=== PATIENT | female | born 1960 | race Caucasian/White ===

== ENCOUNTER 2018-08-06 08:40 | Day surgery (SDC) | payer OTHER ==
[2018-08-06] MEDS ORDERED: Zoledronic Acid/Mannitol/Water 5 MG/100 ML INFUS.BOT IV ONE (09:00)
--- OUTSIDE RECORDS SUMMARY | 2018-08-06 09:41 | XMS REPORT | Summary of Care ---
:1960 Author Name DANK HARRIS M.D. Address [place] Physicians Unavailable , Care Team Providers Name Role Phone DANK HARRIS M.D. Unavailable Unavailable MARY LUEVANO [place], DAPHNE Gaviria Unavailable Unavailable Unavailable Unavailable Unavailable Functional Status Name Dates Details Functional status health issues are not documented Status: Name Dates Details Cognitive status health issues are not documented Status: Problems Name Dates Details Facial rash (782.1, R21) Status: Active Dyspnea on exertion (786.09, R06.09) Status: Active Bacterial overgrowth syndrome (569.89, K63.89) Status: Active Generalized weakness (780.79, R53.1) Status: Active Chronic reflux esophagitis (530.11, K21.0) Status: Active Encounter for long-term (current) use of high-risk medication (V58.69, Z79.899 ) Status: Active Essential (primary) hypertension (401.9, I10) Status: Active Interstitial lung disease (515, J84.9) Status: Active Osteopenia (733.90, M85.80) Status: Active Pulmonary fibrosis (515, J84.10) Status: Active Raynaud's disease (443.0, I73.00) Status: Active Scleroderma (710.1, M34.9) Status: Active Sjogrens syndrome (710.2, M35.00) Status: Active Vitamin D insufficiency (268.9, E55.9) Status: Active Medications Name Dates Details Mycophenolate Mofetil 500 MG Oral Tablet TAKE THREE (3) TABLET(S) BY MOUTH TWICE A DAY. Quantity: 180 Refills: 5 M.Bettie.DANK Start : 03-Oct-2017 Active Lisinopril 20 MG Oral Tablet TAKE 1 TABLET DAILY. Quantity: 90 Refills: 3 M.D.DANK Start : 29-Jan-2017 Active Reclast SOLN INFUSE GM every 6 months Refills: 0 Active Allergies and Adverse Reactions Name Dates Details No Known Allergies (Allergy) Status: Active Procedures Procedure Dates Details Procedures not documented Immunization Name Dates Details Immunizations not documented Family History Name Dates Details Family history of scleroderma (V19.8, Z82.69) Status: Active Social History Name Dates Details - Status: Name Dates Details Former smoker Vital Signs Date Test Result Details No Known Vitals to report Results Date Description Value Details [id number] [[facility]] CMP W/EGFR GLUCOSE 76 mg/dl (Normal) Range: 65-99 Comments: Fasting reference interval UREA NITROGEN (BUN) 16 mg/dl (Normal) Range: 7-25 CREATININE 0.62 mg/dl (Normal) Range: 0.50-1.05 Comments: For patients >49 years of age, the reference limitfor Creatinine is approximately 13% higher for peopleidentified as -[place]. eGFR NON- 101 {ML/MIN/1.7} (Normal) Range: > OR=60 eGFR 117 {ML/MIN/1.7} (Normal) Range: > OR=60 BUN/CREATININE RATIO NOT APPLICABLE {CALC} Range: 6-22 SODIUM 139 mmol/L (Normal) Range: 135-146 POTASSIUM 4.2 mmol/L (Normal) Range: 3.5-5.3 CHLORIDE 103 mmol/L (Normal) Range: 98-110 CARBON DIOXIDE 28 mmol/L (Normal) Range: 20-31 CALCIUM 9.7 mg/dl (Normal) Range: 8.6-10.4 PROTEIN, TOTAL 7.6 g/dl (Normal) Range: 6.1-8.1 ALBUMIN 4.4 g/dl (Normal) Range: 3.6-5.1 GLOBULIN 3.2 {G/DL__CALC} (Normal) Range: 1.9-3.7 ALBUMIN/GLOBULIN RATIO 1.4 {CALC} (Normal) Range: 1.0-2.5 BILIRUBIN, TOTAL 0.4 mg/dl (Normal) Range: 0.2-1.2 ALKALINE PHOSPHATE 55 u/l (Normal) Range: 33-130 AST 18 u/l (Normal) Range: 10-35 ALT 12 u/l (Normal) Range: 6-29 [id number] [[facility]] CBC (INCLUDES DIFF/PLT) Comments: REPORT COMMENT: FASTING:NOAN UPDATE OR CORRECTION HAS BEEN MADE TO NAME WHITE BLOOD CELL COUNT 6.0 {Thousand/u} (Normal) Range: 3.8-10.8 RED BLOOD CELL COUNT 4.36 {Million/uL} (Normal) Range: 3.80-5.10 HEMOGLOBIN 12.6 g/dl (Normal) Range: 11.7-15.5 HEMATOCRIT 38.6 % (Normal) Range: 35.0-45.0 MCV 88.5 fL (Normal) Range: 80.0-100.0 MCH 28.9 pg (Normal) Range: 27.0-33.0 MCHC 32.6 g/dl (Normal) Range: 32.0-36.0 RDW 12.5 % (Normal) Range: 11.0-15.0 PLATELET COUNT 268 {Thousand/u} (Normal) Range: 140-400 MPV 9.9 fL (Normal) Range: 7.5-12.5 ABSOLUTE NEUTROPHILS 4092 {cells/uL} (Normal) Range: 8251-8280 ABSOLUTE LYMPHOCYTES 1296 {cells/uL} (Normal) Range: 850-3900 ABSOLUTE MONOCYTES 552 {cells/uL} (Normal) Range: 200-950 ABSOLUTE EOSINOPHILS 30 {cells/uL} (Normal) Range: 15-500 ABSOLUTE BASOPHILS 30 {cells/uL} (Normal) Range: 0-200 NEUTROPHILS 68.2 % (Normal) LYMPHOCYTES 21.6 % (Normal) MONOCYTES 9.2 % (Normal) EOSINOPHILS 0.5 % (Normal) BASOPHILS 0.5 % (Normal) Plan of Care Name Dates Details Planned Observations Planned Goals not documented Planned Encounters Appointment; DANK HARRIS M.D. On: 04-Mar-2018 10:00 Interventions Provided Discussion/SummaryDear Ms. King: The labs are normal including blood counts, liver and kidney tests. Sincerely, Dr. Harris Instructions Name Dates Details Instructions not documented Encounters Appointment; DANK HARRIS M.D. On: 17-Jul-2016 10:30 Encounter Diagnosis: Problem not documented Appointment; DANK HARRIS M.D. On: 29-Jan-2017 10:30 Encounter Diagnosis: Problem not documented Appointment; IWONA KAPOOR On: 13-Aug-2017 9:30 Encounter Diagnosis: Problem not documented Appointment; DANK HARRIS M.D. On: 13-Aug-2017 10:30 Encounter Diagnosis: Problem not documented
== END 2018-08-06 10:06 | disposition home or self-care (01) ==
LOC: DS 08:40
PROVIDERS: ATTEND Clinical Nurse Specialist Women's Health
DX: M81.0 Age-related osteoporosis without current pathological fracture (principal)
CPT/HCPCS: 96365; J3489

== ENCOUNTER 2019-08-28 11:01 | Emergency (ER) | payer OTHER ==
[2019-08-28] MEDS ORDERED: NA CHLORIDE 0.9% 1,000 ML ONE (12:02)
--- NOTE | 2019-08-28 12:14 | RAD REPORT ---
EXAM DESCRIPTION: RAD - Chest Single View - 08/28/2019 12:06 pm CLINICAL HISTORY: Fever COMPARISON: August 23 TECHNIQUE: AP portable chest image was obtained 1202 hours . FINDINGS: Lung volume is slightly decreased compared to the prior study. Patient has prominent inter stitial opacification as a baseline. The infiltrate changes seen in the right lung base August 23 hav e nearly fully resolved. Minimal stranding in the left lung base is similar to decreased as well. No new or progressive lung parenchymal process. Trachea is midline. Heart and vasculature are normal. No measurable pleural effusion and no pneumotho rax. No acute bony abnormality seen. No acute aortic findings suspected. IMPRESSION: Near complete resolution of right lung base infiltrate since August 23. No new or progressive lung parenchymal process since prior imaging.
[2019-08-28 12:50] LABS: Absolute Lymphocytes (CBC) 1.1 K/uL (0.7-4.9); Basophils % 0.5 % (0-1.3); Hematocrit 35.1 % (36.0-45.0); Lymphocytes % 13.5 % (15.3-44.8); MPV 8.1 fL (7.6-11.3); RBC Red Blood Cell Count 3.94 M/uL (3.86-4.86)
[2019-08-28 12:51] LABS: Protime INR 1.06
[2019-08-28 12:56] LABS: ALT/SGPT 15 U/L (12-78); AST/SGOT 11 U/L (15-37); Albumin 3.5 g/dL (3.4-5.0); Alkaline Phosphatase 62 U/L (45-117); BUN Blood Urea Nitrogen 20 mg/dL (7-18); Bicarbonate 28 mmol/L (21-32); Bilirubin Direct 0.1 mg/dL (0-0.2); Bilirubin Total 0.4 mg/dL (0.2-1.0); Creatine Phosphokinase 26 U/L (26-192); Glucose Level 87 mg/dL (74-106); Lipase 118 U/L (73-393); Potassium 3.9 mmol/L (3.5-5.1); Protein, Total 8.2 g/dL (6.4-8.2); Sodium Level 139 mmol/L (136-145); Troponin (Emerg Dept Use Only) < 0.02 ng/mL (0.0-0.045)
--- NOTE | 2019-08-28 13:06 | RAD REPORT ---
EXAM DESCRIPTION: CT - Head Brain Wo Cont - 08/28/2019 12:58 pm CLINICAL HISTORY: Headache COMPARISON: None. TECHNIQUE: Computed axial tomography of the head was obtained. IV contrast was not requested. All CT scans are performed using dose optimization technique as appropriate and may include automated exposure control or mA/KV adjustment according to patient size. FINDINGS: An intracranial bleed is not seen . The ventricles are normal in caliber. No extra-axial fluid collection is noted. Fluid within the sinuses/ mastoids is not seen. IMPRESSION: No acute intracranial abnormality is seen. If patient's symptoms persist MRI of the bra in would be recommended.
[2019-08-28 13:28] LABS: Urine Blood NEGATIVE (NEG); Urine Glucose NEGATIVE (NEG); Urine Protein NEGATIVE (NEG)
[2019-08-28 13:35] LABS: Urine Bacteria <20 /HPF (<20); Urine Culture Reflex Order NOT NEEDED; Urine RBC <5 /HPF (NONE SEEN)
[2019-08-28] MEDS ORDERED: MORPHINE 2 MG/ML SYR ONE (14:09)
[2019-08-28] MEDS ORDERED: ONDANSETRON 4 MG/2 ML VIAL ONE (14:09)
[2019-08-28] MEDS ORDERED: LIDOCAINE 1% MPF 5 ML VIAL ONE (14:15)
--- NOTE | 2019-08-28 15:31 | ER ---
Nurse's Notes [facility] Name: Jami Carlisle Age: 59 yrs Sex: Female : 1960 Arrival Date: 08/28/2019 Time: 11:04 Bed 6 Private MD: Brennan Zabala C Diagnosis: Fever, unspecified;Meningitis, unspecified Presentation: 08/28 11:09 Presenting complaint: Headache, nausea, and dizziness x 2 days. On Bactrim DS day 2 fot hb UTI, completed Zithromax yesterday for pneumonia. Transition of care: patient was not received from another setting of care. Risk Assessment: Do you want to hurt yourself or someone else?. 11:09 Method Of Arrival: Wheelchair hb 11:09 Acuity: SHAE 3 hb 11:14 Onset of symptoms was August 27, 2019. Care prior to arrival: None. hb 17:00 Initial Sepsis Screen: Does the patient meet any 2 criteria? No. Patient's initial bp sepsis screen is negative. Does the patient have a suspected source of infection? No. Patient's initial sepsis screen is negative. Triage Assessment: 11:29 Headache History: The patient has had previous headaches and this one is similar to bp previous episodes. General: Appears in no apparent distress. uncomfortable, Behavior is cooperative, appropriate for age, anxious. Pain: Complains of pain in head Pain currently is 8 out of 10 on a pain scale. Pain began 2-3 days ago. Also complains of nausea. EENT: No deficits noted. Neuro: No deficits noted. Cardiovascular: No deficits noted. Respiratory: No deficits noted. GI: No signs and/or symptoms were reported involving the gastrointestinal system. : No signs and/or symptoms were reported regarding the genitourinary system. Derm: No deficits noted. Musculoskeletal: No deficits noted. Historical: - Allergies: 11:12 No Known Allergies; hb - Home Meds: 11:12 mycophenolate mofetil 500 mg oral tab 2 tabs 2 times per day [Active]; lisinopril 20 mg hb Oral tab 2 tabs once daily [Active]; acyclovir 800 mg Oral tab twice a day [Active]; - PMHx: 11:12 Sceroderma; Hypertension; Interstitial lung disease; hb - Immunization history:: Adult Immunizations up to date. - Social history:: Smoking status: Patient/guardian denies using tobacco. - Ebola Screening: : No symptoms or risks identified at this time. Screenin:30 Abuse screen: Denies threats or abuse. Denies injuries from another. Nutritional bp screening: No deficits noted. Tuberculosis screening: No symptoms or risk factors identified. Fall Risk None identified. Assessment: 11:30 General: SEE TRIAGE NOTE. bp 13:36 Reassessment: patient signed the informed consent for lumbar puncture. mg2 14:30 Reassessment: PROVIDER AT B/S FOR LP. bp 15:30 Reassessment: ADMIT IN PROCESS. Neuro: Level of Consciousness is awake, alert, obeys bp commands, Oriented to person, place, time, situation, Appropriate for age. 16:30 Reassessment: ADMIT IN PROCESS. bp 17:30 Reassessment: ADMIT ON HOLD FOR POSSIBLE TRANSFER. bp 19:25 General: Appears in no apparent distress. comfortable, Behavior is calm, cooperative, mg2 appropriate for age. Pain: Complains of pain in head Pain does not radiate. Pain currently is 3 out of 10 on a pain scale. Quality of pain is described as aching, Pain began gradually, Is intermittent. Neuro: Level of Consciousness is awake, alert, obeys commands, Oriented to person, place, time, situation, Appropriate for age Reports dizziness, headache. Cardiovascular: Capillary refill < 3 seconds Patient's skin is warm and dry. Respiratory: Airway is patent Respiratory effort is even, unlabored, Respiratory pattern is regular, symmetrical. GI: Reports nausea. : Reports she had a previous UTI treatment. EENT: No signs and/or symptoms were reported regarding the EENT system. Derm: Skin is intact, Skin temperature is warm. Musculoskeletal: Circulation, motion, and sensation intact. Capillary refill < 3 seconds. 19:30 Reassessment: awaiting for [facility] Jeremiah to call back for the room assignment. mg2 20:15 Reassessment: Patient appears in no apparent distress at this time. report called to [address] jeremiah KEN RN and accepted the case. 20:40 Reassessment: Patient appears in no apparent distress at this time. Patient is alert, rr5 oriented x 3, equal unlabored respirations, skin warm/dry/pink. endorsed to [facility] vitally stable no complaints made. breathing spontaneously at room air. with IV cannula t right FA intact. Vital Signs: 11:13 BP 142 / 92; Pulse 79; Resp 16; Temp 99.2; Pulse Ox 99% on R/A; Weight 52.16 kg; Height hb 5 ft. 3 in. (160.02 cm); Pain 6/10; 13:46 BP 150 / 99; Pulse 80; Resp 18; Pulse Ox 100% on R/A; Pain 6/10; mg2 14:55 BP 149 / 92; Pulse 71; Resp 16; Pulse Ox 99% on R/A; mh5 16:29 BP 150 / 82; Pulse 64; Resp 14; Temp 98.4(TE); Pulse Ox 98% on R/A; mh5 17:31 BP 162 / 88; Pulse 66; Resp 16; Pulse Ox 100% ; bp 17:38 BP 162 / 88; Pulse 72; Resp 16; Temp 98.2(TE); Pulse Ox 96% on R/A; mh5 19:25 BP 137 / 91; Pulse 80; Resp 17; Temp 97.9; Pulse Ox 99% ; Pain 3/10; mg2 20:30 BP 156 / 93; Pulse 85; Resp 18; Pulse Ox 99% ; rr5 11:13 Body Mass Index 20.37 (52.16 kg, 160.02 cm) hb ED Course: 11:04 Patient arrived in ED. mr 11:04 Brennan Zabala MD is Private Physician. mr 11:11 Triage completed. hb 11:13 Arm band placed on. hb 11:17 Felix Churchill, RN is Primary Nurse. mg2 11:29 Julian Jarquin, RN is Primary Nurse. bp 11:30 Patient has correct armband on for positive identification. Bed in low position. Call bp light in reach. Side rails up X2. 11:41 Glen Azul MD is Attending Physician. gs 12:06 Chest Single View XRAY In Process Unspecified. EDMS 12:17 EKG done, by site technician. reviewed by Glen Azul MD. at1 12:20 Inserted saline lock: 20 gauge in right forearm, using aseptic technique. Blood bp collected. 12:58 Head Brain Wo Cont CT In Process Unspecified. EDMS 14:50 Assist provider with lumbar puncture: Set up LP tray. 5 15:28 Brennan Zabala MD is Hospitalizing Provider. gs 16:32 Csf Culture: hsv, viral culture Sent. [facility] 16:32 Csf Culture Sent. 5 17:00 Patient admitted, IV remains in place. bp 17:20 initiated a transfer with Yloie at the [facility] transfer center. eb 17:35 connected the neurologist administrative personal assistant for [facility] with Dr. Azul for patient eb transfer consultation. 17:47 connected the hospitalist administrative personal assistant for [facility] with Dr. Azul for patient eb transfer consultation. Administered Medications: 12:20 Drug: NS 0.9% 1000 ml Route: IV; Rate: 1 bolus; Site: right forearm; bp 13:00 Follow up: IV Status: Completed infusion; IV Intake: 1000ml bp 14:16 Drug: morphine 2 mg Route: IVP; Site: right wrist; mg2 16:34 Follow up: Response: Pain is decreased bp 14:16 Drug: Zofran 4 mg Route: IVP; Site: right wrist; mg2 16:33 Follow up: Response: Nausea is decreased bp 16:06 Drug: vancoMYCIN 1 grams Route: IVPB; Infused Over: 2 hrs; Site: right wrist; mg2 16:34 Follow up: IV Status: Infusion continued upon admission bp 16:07 Drug: Rocephin - (cefTRIAXone) 2 grams Route: IVPB; Infused Over: 30 mins; Site: right mg2 wrist; 16:33 Follow up: IV Status: Completed infusion; IV Intake: 50ml bp 18:22 Drug: Acyclovir 10 mg/kg Route: IVPB; Site: right forearm; bp 19:41 Follow up: Response: No adverse reaction; IV Status: Completed infusion; IV Intake: rr5 100ml 18:22 Drug: Ketorolac 15 mg Route: IVP; Site: right forearm; bp 19:41 Follow up: Response: No adverse reaction rr5 Intake: 13:00 IV: 1000ml; Total: 1000ml. bp 16:33 IV: 50ml; Total: 1050ml. bp 19:41 IV: 100ml; Total: 1150ml. rr5 Outcome: 15:29 Decision to Hospitalize by Provider. 17:00 Admitted to Med/surg accompanied by tech, family with patient, via wheelchair, room bp 417, with chart, Report called to CRISTIANA AGUILAR 17:00 Condition: stable 17:00 Instructed on the need for admit. 17:54 ER care complete, transfer ordered by MD. cohen 20:42 Patient left the ED. rr5 Signatures: Dispatcher [employer] Sofiya Atkins, Anita, cashier payments received EKG Tat1 Imani Vasquez, LAUREN RN Brigth Mirna 5 Glen Azul MD MD gs Peltier, Brian, RN RN Meron Kohli Michele, RN RN [facility] Darren Garrido RN RN rr5 Corrections: (The following items were deleted from the chart) 11:15 11:09 Presenting complaint: Headache and dizziness x 2 days, on Bactrim DS day 2 fot hb UTI, completed Zithromax yesterday for pneumonia. hb
--- NOTE | 2019-08-28 15:31 | EDPHYS ---
Physician Documentation [facility] Name: Jami Carlisle Age: 59 yrs Sex: Female : 1960 Arrival Date: 08/28/2019 Time: 11:04 Bed 6 Private MD: Brennan Zabala C ED Physician Glen Azul HPI: 08/28 15:24 This 59 yrs old Female presents to ER via Wheelchair with complaints of Fever.gs 15:24 Onset: The symptoms/episode began/occurred yesterday. Modifying factors: there are no gs obvious modifying factors. Associated signs and symptoms: Pertinent positives: headache, myalgias, dizziness. Severity of symptoms: At their worst the symptoms were severe in the emergency department the symptoms are unchanged. The patient has not experienced similar symptoms in the past. The patient has been recently seen by a physician: the patient's primary care provider. Historical: - Allergies: 11:12 No Known Allergies; hb - Home Meds: 11:12 mycophenolate mofetil 500 mg oral tab 2 tabs 2 times per day [Active]; lisinopril 20 mg hb Oral tab 2 tabs once daily [Active]; acyclovir 800 mg Oral tab twice a day [Active]; - PMHx: 11:12 Sceroderma; Hypertension; Interstitial lung disease; hb - Immunization history:: Adult Immunizations up to date. - Social history:: Smoking status: Patient/guardian denies using tobacco. - Ebola Screening: : No symptoms or risks identified at this time. ROS: 15:24 All other systems are negative. gs Exam: 15:24 Head/Face: Normocephalic, atraumatic. Eyes: Pupils equal round and reactive to light, gs extra-ocular motions intact. Lids and lashes normal. Conjunctiva and sclera are non-icteric and not injected. Cornea within normal limits. Periorbital areas with no swelling, redness, or edema. ENT: Nares patent. No nasal discharge, no septal abnormalities noted. Tympanic membranes are normal and external auditory canals are clear. Oropharynx with no redness, swelling, or masses, exudates, or evidence of obstruction, uvula midline. Mucous membranes moist. Chest/axilla: Normal chest wall appearance and motion. Nontender with no deformity. No lesions are appreciated. Cardiovascular: Regular rate and rhythm with a normal S1 and S2. No gallops, murmurs, or rubs. Normal PMI, no JVD. No pulse deficits. Respiratory: Lungs have equal breath sounds bilaterally, clear to auscultation and percussion. No rales, rhonchi or wheezes noted. No increased work of breathing, no retractions or nasal flaring. Abdomen/GI: Soft, non-tender, with normal bowel sounds. No distension or tympany. No guarding or rebound. No evidence of tenderness throughout. Back: No spinal tenderness. No costovertebral tenderness. Full range of motion. Skin: Warm, dry with normal turgor. Normal color with no rashes, no lesions, and no evidence of cellulitis. MS/ Extremity: Pulses equal, no cyanosis. Neurovascular intact. Full, normal range of motion. Neuro: Awake and alert, GCS 15, oriented to person, place, time, and situation. Cranial nerves II-XII grossly intact. Motor strength 5/5 in all extremities. Sensory grossly intact. Cerebellar exam normal. Normal gait. 15:24 Constitutional: The patient appears alert, awake, uncomfortable. 15:24 Neck: ROM/movement: Meningeal signs: are present. Vital Signs: 11:13 BP 142 / 92; Pulse 79; Resp 16; Temp 99.2; Pulse Ox 99% on R/A; Weight 52.16 kg; Height hb 5 ft. 3 in. (160.02 cm); Pain 6/10; 13:46 BP 150 / 99; Pulse 80; Resp 18; Pulse Ox 100% on R/A; Pain 6/10; mg2 14:55 BP 149 / 92; Pulse 71; Resp 16; Pulse Ox 99% on R/A; mh5 16:29 BP 150 / 82; Pulse 64; Resp 14; Temp 98.4(TE); Pulse Ox 98% on R/A; mh5 17:31 BP 162 / 88; Pulse 66; Resp 16; Pulse Ox 100% ; bp 17:38 BP 162 / 88; Pulse 72; Resp 16; Temp 98.2(TE); Pulse Ox 96% on R/A; mh5 19:25 BP 137 / 91; Pulse 80; Resp 17; Temp 97.9; Pulse Ox 99% ; Pain 3/10; mg2 20:30 BP 156 / 93; Pulse 85; Resp 18; Pulse Ox 99% ; rr5 11:13 Body Mass Index 20.37 (52.16 kg, 160.02 cm) hb Procedures: 15:06 Lumbar Puncture: Patient placed in left lateral decubitus position. clear fluid. jmm Puncture site dressed with 4x4s, Patient tolerated well. MDM: 12:13 Patient medically screened. 15:24 Differential diagnosis: viral Infection, bacterial infection, URI, bronchitis, gs pneumonia meningitis. Data reviewed: vital signs, nurses notes, lab test result(s), EKG, radiologic studies. Response to treatment: the patient's symptoms have markedly improved after treatment, and as a result, I will admit patient. 08/28 11:53 Order name: Basic Metabolic Panel; Complete Time: 13:13 08/28 11:53 Order name: Blood Culture Adult (2) 08/28 11:53 Order name: CBC with Diff; Complete Time: 13:13 08/28 11:53 Order name: CPK; Complete Time: 13:13 08/28 11:53 Order name: Lactate; Complete Time: 13:13 08/28 11:53 Order name: LFT's; Complete Time: 13:13 08/28 11:53 Order name: Lipase; Complete Time: 13:13 08/28 11:53 Order name: Procalcitonin; Complete Time: 14:03 08/28 11:53 Order name: Protime (+inr); Complete Time: 13:13 08/28 11:53 Order name: Troponin (emerg Dept Use Only); Complete Time: 13:13 08/28 11:53 Order name: Urine Microscopic Only; Complete Time: 14:03 08/28 13:20 Order name: Urine Dipstick--Ancillary (enter results); Complete Time: 14:03 08/28 13:20 Order name: Urine --Ancillary (enter results); Complete Time: 14:03 eb 08/28 13:28 Order name: Csf Culture 08/28 11:53 Order name: Chest Single View XRAY; Complete Time: 13:13 08/28 12:14 Order name: Head Brain Wo Cont CT; Complete Time: 13:13 08/28 13:28 Order name: Fluid Cell Count,Body; Complete Time: 17:27 08/28 13:28 Order name: Spinal Fluid Profile; Complete Time: 17:27 08/28 13:28 Order name: Csf Culture: hsv, viral culture 08/28 14:20 Order name: EKG Electrocardiogram; Complete Time: 18:02 [facility] 08/28 15:45 Order name: CONS Pharmacy Consult [facility] 08/28 15:45 Order name: Regular [facility] 08/28 18:03 Order name: EKG Electrocardiogram [facility] 08/28 11:53 Order name: Accucheck; Complete Time: 11:59 08/28 11:53 Order name: Cardiac monitoring; Complete Time: 11:59 08/28 11:53 Order name: EKG - Nurse/Tech; Complete Time: 11:59 08/28 11:53 Order name: IV Saline Lock - Large Bore; Complete Time: 12:30 08/28 11:53 Order name: Labs collected and sent; Complete Time: 12:30 08/28 11:53 Order name: O2 Per Protocol; Complete Time: 11:58 08/28 11:53 Order name: O2 Sat Monitoring; Complete Time: 11:58 08/28 11:53 Order name: Urine Dipstick-Ancillary (obtain specimen); Complete Time: 13:24 08/28 12:55 Order name: LP Consents; Complete Time: 13:36 08/28 12:55 Order name: LP Setup; Complete Time: 13:35 gs Administered Medications: 12:20 Drug: NS 0.9% 1000 ml Route: IV; Rate: 1 bolus; Site: right forearm; bp 13:00 Follow up: IV Status: Completed infusion; IV Intake: 1000ml bp 14:16 Drug: morphine 2 mg Route: IVP; Site: right wrist; mg2 16:34 Follow up: Response: Pain is decreased bp 14:16 Drug: Zofran 4 mg Route: IVP; Site: right wrist; mg2 16:33 Follow up: Response: Nausea is decreased bp 16:06 Drug: vancoMYCIN 1 grams Route: IVPB; Infused Over: 2 hrs; Site: right wrist; mg2 16:34 Follow up: IV Status: Infusion continued upon admission bp 16:07 Drug: Rocephin - (cefTRIAXone) 2 grams Route: IVPB; Infused Over: 30 mins; Site: right mg2 wrist; 16:33 Follow up: IV Status: Completed infusion; IV Intake: 50ml bp 18:22 Drug: Acyclovir 10 mg/kg Route: IVPB; Site: right forearm; bp 19:41 Follow up: Response: No adverse reaction; IV Status: Completed infusion; IV Intake: rr5 100ml 18:22 Drug: Ketorolac 15 mg Route: IVP; Site: right forearm; bp 19:41 Follow up: Response: No adverse reaction rr5 Disposition: 08/28/19 17:[address] [facility]. Diagnosis are Fever, unspecified, Meningitis, unspecified. - Reason for transfer: Higher level of care. - Accepting physician is tbd. - Condition is Stable. - Problem is new. - Symptoms have improved. Critical care time excluding procedures: 15:24 Critical care time: Bedside Care: 10 minutes, Consultation: 10 minutes, Family gs Intervention: 10 minutes. Total time: 30 minutes Signatures: Dispatcher [employer] EDMS Garret Jefferson PA PA jmm Baxter, Heather, RN RN Glen Michele MD MD Joaquin Ramon RN RN ja1 Julian Jarquin RN RN Meron Kohli eb Felix Churchill, RN RN [facility] Darren Garrido RN RN rr5 Corrections: (The following items were deleted from the chart) 15:25 15:10 This 59 yrs old Female presents to ER via Wheelchair with complaints of gs Dizziness, Headache. gs 16:23 15:29 Hospitalization Ordered by A Vj LUEVANO for Observation. Preliminary diagnosis is eb Fever, unspecified. Bed requested for Telemetry/MedSurg (observation). Status is Observation. Condition is Stable. Problem is new. Symptoms have improved. UTI on Admission? No. gs 16:27 16:23 08/28/2019 15:29 Hospitalization Ordered by A Vj LUEVANO for Observation. ja1 Preliminary diagnosis is Fever, unspecified. Bed requested for Telemetry/MedSurg (observation). Status is Observation. Condition is Stable. Problem is new. Symptoms have improved. UTI on Admission? No. eb 17:34 16:27 08/28/2019 15:29 Hospitalization Ordered by A Vj LUEVANO for Observation. gs Preliminary diagnosis is Fever, unspecified. Bed requested for Telemetry/MedSurg (observation). Status is Observation. Condition is Stable. Problem is new. Symptoms have improved. UTI on Admission? No. ja1 20:42 17:54 08/28/2019 17:[address] [facility]. Diagnosis is rr5 Fever, unspecified; Meningitis, unspecified. Reason for transfer: Higher level of care. Accepting physician is tbd. Condition is Stable. Problem is new. Symptoms have improved. gs
[2019-08-28] MEDS ORDERED: ACETAMINOPHEN 500 MG TAB PO PRN (15:38)
[2019-08-28 15:56] LABS: CSF Glucose 41 mg/dL (40-70)
[2019-08-28] MEDS ORDERED: CEFTRIAXONE/SWI 2gm 2 GM/20 ML SYR IVP ONE (16:00)
[2019-08-28] MEDS ORDERED: NA CHLORIDE 0.9% 1,000 ML IV SCH (16:00)
[2019-08-28] MEDS ORDERED: VANCOMYCIN 1 GM/250 ML BAG IV ONE (16:00)
[2019-08-28] MEDS ORDERED: NA CHLORIDE 0.9% 100 ML IV ONE (16:01)
[2019-08-28 16:25] LABS: Body Fluid Source CSF
[2019-08-28 16:27] LABS: Appearance SLT. TURBID (CLEAR); Body Fluid WBC 98 /mm^3; Color of fluid Colorless (COLORLESS)
[2019-08-28 16:29] LABS: Appearance SLT. TURBID (CLEAR); Body Fluid Source CSF; Color of fluid Colorless (COLORLESS); Fluid Total Volume 7 ml
[2019-08-28 16:31] LABS: Body Fluid WBC 77 /mm^3
--- NOTE | 2019-08-28 17:13 | EKG ---
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
[2019-08-28 17:40] VITALS: BMI 20.3
[2019-08-28] MEDS ORDERED: ACYCLOVIR INJ 500 MG in NA CHLORIDE 0.9% 100 ML IVPB ONE (18:00)
[2019-08-28] MEDS ORDERED: KETOROLAC 30 MG/ML INJ ONE (18:12)
[2019-08-28 20:55] VITALS: TEMP 97.9; O2SAT 99
[2019-08-28 20:56] VITALS: BP 156/93
[2019-08-28] MEDS ORDERED: CEFTRIAXONE/SWI 1gm 1 GM/10 ML SYR IVP SCH (21:00)
[2019-08-29] MEDS ORDERED: VANCOMYCIN/NS 1 gm 1 GM/250 ML BAG IVPB SCH (04:00)
--- NOTE | 2019-08-30 13:07 | EKG ---
Test Date: 2019-08-28 Test Time: 16:43:45 Tobacco Cutter: SANDRA MEASUREMENT RESULTS: Intervals: Rate: 66 [place]: 160 QRSD: 70 QT: 396 QTc: 415 [place]: P: 60 [place]: 160 QRS: 72 T: 52 INTERPRETIVE STATEMENTS: Normal sinus rhythm Normal ECG Compared to ECG 08/28/2019 12:11:53 Myocardial infarct finding no longer present Electronically Signed On 08-30-19 13:04:02 CDT by Maxime Paul
== END 2019-08-28 20:42 | disposition short-term general hospital (02) ==
LOC: ER 11:01 → ERHOLD 15:37 → UNDOADMOB 15:37 → 4TH 17:07 → ERHOLD 17:07 → ER 20:42
PROC: 009U3ZX Drainage of Spinal Canal, Percutaneous Approach, Diagnostic (ICD-10-PCS; principal; 2019-08-28)
DX: G03.9 Meningitis, unspecified (principal); I10 Essential (primary) hypertension
CPT/HCPCS: 93005 ×2; 87040 ×2; 87070; 85025; 80048; 36415; 89050 ×2; 82550; 81025; 84157; 85610; 82945; 80076; 83605; 84484; 83690; 84145; 70450; 71045; 62270 ×2; 99285; J2270; J0696; J3370; J7030 ×2; J0133; J2405; 81003; 81015; 96361; 96365; 96367; 96368; 96375

== ENCOUNTER 2021-09-21 07:30 | Inpatient (IN) | payer BC ==
[2021-09-21] MEDS ORDERED: NA CHLORIDE 0.9% 2,000 ML ONE (07:58)
[2021-09-21 08:22] LABS: Potassium 4.4 mmol/L (3.5-5.1)
[2021-09-21 08:27] LABS: Absolute Lymphocytes (CBC) 0.7 K/uL (0.7-4.9); Basophils % 0.3 % (0-1.3); Hematocrit 36.6 % (36.0-45.0); Lymphocytes % 7.5 % (15.3-44.8); MPV 8.1 fL (7.6-11.3); RBC Red Blood Cell Count 3.95 M/uL (3.86-4.86)
[2021-09-21 08:49] LABS: Blood Morphology Comment NOT SEEN (NOT SEEN); Platelet Estimate ADEQ; White Blood Cell Scan OK (OK)
[2021-09-21 08:51] LABS: Urine Blood Negative (Negative); Urine Glucose Negative (Negative); Urine Protein Negative (Negative); Urine pH 6.5 (5.0-7.0)
[2021-09-21 09:07] LABS: Urine Bacteria <20 /HPF (<20); Urine RBC NONE SEEN /HPF (NONE SEEN)
[2021-09-21 09:35] LABS: CSF Glucose 60 mg/dL (40-70)
[2021-09-21 09:48] LABS: Appearance CLEAR (CLEAR); Body Fluid Source CSF; Color of fluid Colorless (COLORLESS); Fluid Total Volume 8 ml
--- NOTE | 2021-09-21 10:12 | RAD REPORT ---
EXAM DESCRIPTION: Josafat Single View09/21/2021 8:48 am CLINICAL HISTORY: Fever COMPARISON: 2019 FINDINGS: Bilateral patchy lung opacities. Prominence of the mediastinum may indicate lymphadenopathy. Heart is normal size The heart is normal size IMPRESSION: Bilateral patchy lung opacities may represent pneumonia/atypical infection superimposed over chronic changes. Prominence of mediastinum may indicate lymphadenopathy
[2021-09-21] MEDS ORDERED: Levofloxacin 750mg IV 750 MG/150 ML BAG IV ONE (10:28)
[2021-09-21 10:39] LABS: Body Fluid Source CSF; Body Fluid WBC 230 /mm^3; Color of fluid Colorless (COLORLESS)
[2021-09-21 10:40] LABS: Appearance CLEAR (CLEAR); Body Fluid WBC 70 /mm^3
[2021-09-21] MEDS ORDERED: VANCOMYCIN 1.25 GM in NA CHLORIDE 0.9% 250 ML IVPB ONE (12:00)
[2021-09-21] MEDS: CEFTRIAXONE 2,000 MG in NA CHLORIDE 0.9% 100 ML IV SCH ×2 (12:00→20:56)
--- NOTE | 2021-09-21 12:26 | EDPHYS ---
Physician Documentation [facility] Name: Jami Carlisle Age: 61 yrs Sex: Female : 1960 Arrival Date: 09/21/2021 Time: 07:33 Bed 7 Private MD: Brennan Zabala C ED Physician Kieran Soto HPI: 09/21 08:52 This 61 yrs old Female presents to ER via Wheelchair with complaints of rn Fever, chills, Headache, Neck Pain, <24hrs Old, Altered Mental Status. 08:52 The patient reports fever, not measured (subjective). Onset: The symptoms/episode rn began/occurred 2 day(s) ago. Modifying factors: there are no obvious modifying factors. Associated signs and symptoms: Pertinent positives: altered mental status,\\E\\ Pertinent negatives: abdominal pain, chest pain, cough, diarrhea, hemoptysis, skin rash, shortness of breath, swelling, vomiting. Severity of symptoms: At their worst the symptoms were moderate in the emergency department the symptoms are unchanged. The patient has experienced a previous episode. The patient has been recently seen by a physician:. states fever and diagnosed with UTI recently by Dr. Zabala. Placed on Bactrim. Last night after taking Bactrim began to become confused and altered. No vomiting or diarrhea. states history of possible meningitis in the past but was inconclusive. This is happened once before in that situation. states is not at her baseline and seems really confused.. Historical: - Allergies: 07:43 No Known Allergies; aa5 - PMHx: 07:43 Hypertension; interstitial lung disease; Sceroderma; aa5 - Immunization history:: Client reports receiving the 2nd dose of the Covid vaccine. - Social history:: Smoking status: Patient denies any tobacco usage or history of. - Family history:: not pertinent. - Hospitalizations: : No recent hospitalization is reported. 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, ENT: Negative for injury, pain, and discharge, Neck: Negative for injury, pain, and swelling, Cardiovascular: Negative for chest pain, palpitations, and edema, Respiratory: Negative for shortness of breath, cough, wheezing, and pleuritic chest pain, Abdomen/GI: Negative for abdominal pain, nausea, vomiting, diarrhea, and constipation, Back: Negative for injury and pain, : Negative for injury, bleeding, discharge, and swelling, MS/Extremity: Negative for injury and deformity, Skin: Negative for injury, rash, and discoloration, Neuro: Positive for weakness Exam: 08:52 Constitutional: Thin female, no acute distress, appears encephalopathic Head/Face: rn Normocephalic, atraumatic. Eyes: Periorbital areas with no swelling, redness, or edema. ENT: Dry mucous membranes, no stridor Neck: Trachea midline, no masses palpated. Mild neck stiffness with flexion appreciated Cardiovascular: Regular rate and rhythm. No pulse deficits. Respiratory: No increased work of breathing, no retractions or nasal flaring. Abdomen/GI: Soft, non-tender Skin: Warm, dry, no rashes or evidence of cellulitis MS/ Extremity: Pulses equal, no cyanosis. Neuro: Awake, moves all 4 extremities and withdraws from pain. Appears encephalopathic and confusing only answers some questions. 16:45 ECG was reviewed by the Attending Physician. rn Vital Signs: 07:40 BP 87 / 63; Pulse 81; Resp 20 S; Temp 97.8(O); Pulse Ox 100% on R/A; Weight 50.8 kg aa5 (R); Height 5 ft. 1 in. (154.94 cm) (R); 08:13 BP 95 / 68; Pulse 70; Pulse Ox 99% on R/A; ll1 08:42 BP 113 / 78; Pulse 66; Resp 26; Pulse Ox 100% ; ll1 09:11 Temp 98.0(TE); ll1 09:19 BP 115 / 71; Pulse 67; Pulse Ox 95% on R/A; ll1 10:51 BP 109 / 72; Pulse 77; Resp 28; Pulse Ox 100% on R/A; Pain 0/10; ll1 13:07 BP 120 / 64; Pulse 69; Resp 28; Pulse Ox 98% on R/A; ll1 13:21 Temp 99.5(TE); ll1 15:40 BP 128 / 74; Pulse 74; Resp 26; Temp 98.8(TE); Pulse Ox 99% ; ll1 16:36 BP 126 / 81; Pulse 82; Resp 27; Pulse Ox 98% ; ll1 07:40 Body Mass Index 21.16 (50.80 kg, 154.94 cm) aa5 Procedures: 08:34 Lumbar Puncture: Patient placed in left lateral decubitus position. Prepped with rn Jodee. Draped using sterile technique. Collected 9 ml's of clear fluid. Sample sent to lab. Puncture site dressed with band aid, Patient tolerated well. Single stick, tolerated well, lidocaine used for anesthesia. opening pressure 17. MDM: 07:46 Patient medically screened. rn 12:25 ED course: Consulted with Dr. Loco who agrees should treat as bacterial meningitis rn until proven otherwise. Will check with the lab to see if we can send the directigens on CSF. Vanco and Rocephin already ordered.. 09/21 07:47 Order name: Basic Metabolic Panel rn 09/21 07:47 Order name: Blood Culture Adult (2) rn 09/21 07:47 Order name: CBC with Diff rn 09/21 07:47 Order name: Lactate; Complete Time: 08:37 rn 09/21 07:47 Order name: Procalcitonin; Complete Time: 09:02 rn 09/21 07:47 Order name: Urine Culture rn 09/21 07:47 Order name: Urine Microscopic Only; Complete Time: 09:38 rn 09/21 07:47 Order name: COVID-19 SARS RT PCR (Document "Date of Onset" if Symptomatic); Complete rn Time: 09:38 09/21 07:48 Order name: Basic Metabolic Panel; Complete Time: 08:37 EDAR 09/21 07:48 Order name: Blood Culture EDAR 09/21 08:37 Order name: Csf Culture 09/21 08:37 Order name: Fluid Cell Count,Body; Complete Time: 11:18 rn 09/21 08:37 Order name: Spinal Fluid Profile; Complete Time: 11:18 rn 09/21 07:47 Order name: Chest Single View XRAY; Complete Time: 10:14 rn 09/21 08:49 Order name: CBC Smear Scan EDAR 09/21 08:51 Order name: Urine Dipstick-Ancillary EDAR 09/21 10:16 Order name: Flu; Complete Time: 12:14 rn 09/21 13:13 Order name: Vancomycin Level Trough EDMS 09/21 13:36 Order name: Miscellaneous Micro Reference; Complete Time: 16:39 EDAR 09/21 13:56 Order name: Brain W/Wo Cont EDMS 09/21 07:47 Order name: Cardiac monitoring; Complete Time: 07:57 rn 09/21 07:47 Order name: EKG - Nurse/Tech; Complete Time: 07:57 rn 09/21 07:47 Order name: IV Saline Lock - Large Bore; Complete Time: 07:57 rn 09/21 07:47 Order name: Labs collected and sent; Complete Time: 07:57 rn 09/21 07:47 Order name: O2 Per Protocol; Complete Time: 07:57 rn 09/21 07:47 Order name: O2 Sat Monitoring; Complete Time: 07:57 rn 09/21 07:47 Order name: Urine Dipstick-Ancillary (obtain specimen); Complete Time: 08:42 rn 09/21 07:59 Order name: Lumbar Puncture Setup; Complete Time: 08:13 rn 09/21 07:59 Order name: Lumbar Puncture Consent; Complete Time: 08:13 rn EC:45 Rate is 70 beats/min. Rhythm is regular. QRS [place] is Normal. [place] interval is normal. QRS rn interval is normal. QT interval is normal. No Q waves. T waves are Normal. No ST changes noted. Clinical impression: NSR w/ Non-specific ST/T Changes. Interpreted by me. Reviewed by me. Administered Medications: 08:13 Drug: NS 0.9% 1000 ml Route: IV; Rate: 1000 ml; Site: left antecubital; ll1 10:49 Follow up: Response: No adverse reaction; IV Status: Completed infusion; IV Intake: ll1 1000ml 08:13 Drug: NS 0.9% 1000 ml Route: IV; Rate: 1000 ml; Site: left antecubital; ll1 10:49 Follow up: Response: No adverse reaction; IV Status: Completed infusion; IV Intake: ll1 500ml 10:35 Drug: LevaQUIN (levofloxacin) 750 mg Volume: 150 ml; Route: IVPB; Infused Over: 90 ll1 mins; Site: left antecubital; 12:20 Follow up: Response: No adverse reaction; IV Status: Completed infusion; IV Intake: ll1 150ml 12:14 Not Given (Duplicate Order): vancoMYCIN 1 grams IVPB once over 2 hrs rn 12:14 Not Given (Duplicate Order): Rocephin (cefTRIAXone) 1 grams IV at calculated rate once; rn Given slow IV push per pharmacy instructions 12:29 Drug: Rocephin (cefTRIAXone) 2 grams Route: IV; Rate: calculated rate; Site: left ll1 antecubital; 13:06 Follow up: Response: No adverse reaction; IV Status: Completed infusion; IV Intake: ll1 100ml 13:06 Drug: vancoMYCIN 20 mg/kg {Note: 1.25 GM.} Route: IVPB; Site: left antecubital; ll1 16:00 Follow up: Response: No adverse reaction; IV Status: Completed infusion; IV Intake: ll1 250ml 15:00 Drug: Zofran (Ondansetron) 4 mg Route: IVP; Site: left antecubital; ll1 16:01 Follow up: Response: No adverse reaction ll1 16:46 Drug: morphine 4 mg {Note: rass -1.} Route: IVP; Site: left antecubital; ll1 17:05 Follow up: Response: No adverse reaction; Pain is decreased ll1 Disposition Summary: 09/21/21 12:25 Hospitalization Ordered Hospitalization Status: Inpatient Admission rn Provider: Brennan Zabala rn [facility] rn Condition: Stable rn Problem: new rn Symptoms: are unchanged rn Bed/Room Type: Standard rn Room Assignment: 223(09/21/21 15:45) em1 Diagnosis - Meningitis, unspecified rn - Altered mental status, unspecified rn Forms: - Medication Reconciliation Form rn - SBAR form rn Signatures: Dispatcher [employer] EDKieran Mancini MD MD rn Martinez, Eric em1 Lynn Coronado RN RN aa5 Joshua Alvares RN RN ll1 Corrections: (The following items were deleted from the chart) 09:10 07:47 Accucheck ordered. rn ll1 09:56 08:34 Lumbar Puncture: Patient placed in left lateral decubitus position. Prepped with rn Betadine. Draped using sterile technique. Collected 9 ml's of clear fluid. Sample sent to lab. Puncture site dressed with band aid, Patient tolerated well. Single stick, tolerated well, lidocaine used for anesthesia.. rn 13:56 13:53 Brain With Cont ordered. EDAR EDMS 15:45 12:25 rn em1
--- NOTE | 2021-09-21 12:26 | ER ---
Nurse's Notes [facility] Name: Jami Carlisle Age: 61 yrs Sex: Female : 1960 Arrival Date: 09/21/2021 Time: 07:33 Bed 7 Private MD: Brennan Zabala C Diagnosis: Meningitis, unspecified;Altered mental status, unspecified Presentation: 09/21 07:40 Chief complaint: Pt's states "she's been having a headache and a fever of 103*F aa5 but this morning I found her on the commode all confused and this happened last time she took Bactrim; all she took was 1 dose of Bactrim yesterday for a urine infection and the same reaction happened again". Coronavirus screen: headache. Ebola Screen: No symptoms or risks identified at this time. Risk Assessment: Do you want to hurt yourself or someone else? Unable to obtain. Onset of symptoms was September 2021. 07:40 Acuity: SHAE 2 aa5 07:40 Method Of Arrival: Wheelchair aa5 07:40 Initial Sepsis Screen: Does the patient meet any 2 criteria? Systolic BP < 90 mmHg. aa5 Altered Mental Status. Yes Does the patient have a suspected source of infection? Yes: Dysuria/Frequency/Urgency/UTI. Triage Assessment: 16:34 Headache History: The patient has had previous headaches and this one is similar to ll1 previous episodes. General: Appears ill, Behavior is cooperative, appropriate for age, listless. Pain: Pain currently is 5 out of 10 on a pain scale. Pain began 2-3 days ago. Also complains of nausea. Historical: - Allergies: 07:43 No Known Allergies; aa5 - PMHx: 07:43 Hypertension; interstitial lung disease; Sceroderma; aa5 - Immunization history:: Client reports receiving the 2nd dose of the Covid vaccine. - Social history:: Smoking status: Patient denies any tobacco usage or history of. - Family history:: not pertinent. - Hospitalizations: : No recent hospitalization is reported. Screenin:16 Abuse screen: Denies threats or abuse. Nutritional screening: No deficits noted. ll1 Tuberculosis screening: No symptoms or risk factors identified. Fall Risk IV access (20 points). Ambulatory Aid- Crutches/Cane/Walker (15 pts). Gait- Impaired (20 pts.). Mental Status- Overestimates/Forgets Limitations (15 pts.). Total Oneill Fall Scale indicates High Risk Score (45 or more points). Fall prevention measures have been instituted. Side Rails Up X 2 Placed Close to Nursing Station Frequent Obs/Assessments Occuring Family Present and informed to notify staff if the need to leave the bedside As available patient and family educated on Fall Prevention Program and Strategies. Assessment: 08:14 General: Appears ill, Behavior is listless, quiet. Pain: Denies pain. Neuro: Level of ll1 Consciousness is awake, listless, Oriented to person, Moves all extremities. Facial symmetry appears normal. Cardiovascular: No deficits noted. Respiratory: No deficits noted. : states she has UTI, started Bactrim last night. 08:58 Reassessment: No changes from previously documented assessment. Patient and/or family ll1 updated on plan of care and expected duration. Pain level reassessed. 10:00 Reassessment: No changes from previously documented assessment. Patient and/or family ll1 updated on plan of care and expected duration. Pain level reassessed. 11:00 Reassessment: No changes from previously documented assessment. Patient and/or family ll1 updated on plan of care and expected duration. Pain level reassessed. 12:00 Reassessment: No changes from previously documented assessment. Patient and/or family ll1 updated on plan of care and expected duration. Pain level reassessed. 13:00 Reassessment: No changes from previously documented assessment. Patient and/or family ll1 updated on plan of care and expected duration. Pain level reassessed. 14:00 Reassessment: No changes from previously documented assessment. Patient and/or family ll1 updated on plan of care and expected duration. Pain level reassessed. 15:00 Reassessment: No changes from previously documented assessment. ll1 16:00 Reassessment: No changes from previously documented assessment. Patient and/or family ll1 updated on plan of care and expected duration. Pain level reassessed. Patient states symptoms have improved. 16:36 Reassessment: No changes from previously documented assessment. Patient and/or family ll1 updated on plan of care and expected duration. Pain level reassessed. Vital Signs: 07:40 BP 87 / 63; Pulse 81; Resp 20 S; Temp 97.8(O); Pulse Ox 100% on R/A; Weight 50.8 kg aa5 (R); Height 5 ft. 1 in. (154.94 cm) (R); 08:13 BP 95 / 68; Pulse 70; Pulse Ox 99% on R/A; ll1 08:42 BP 113 / 78; Pulse 66; Resp 26; Pulse Ox 100% ; ll1 09:11 Temp 98.0(TE); ll1 09:19 BP 115 / 71; Pulse 67; Pulse Ox 95% on R/A; ll1 10:51 BP 109 / 72; Pulse 77; Resp 28; Pulse Ox 100% on R/A; Pain 0/10; ll1 13:07 BP 120 / 64; Pulse 69; Resp 28; Pulse Ox 98% on R/A; ll1 13:21 Temp 99.5(TE); ll1 15:40 BP 128 / 74; Pulse 74; Resp 26; Temp 98.8(TE); Pulse Ox 99% ; ll1 16:36 BP 126 / 81; Pulse 82; Resp 27; Pulse Ox 98% ; ll1 07:40 Body Mass Index 21.16 (50.80 kg, 154.94 cm) aa5 ED Course: 07:33 Patient arrived in ED. am2 07:33 Brennan Zabala MD is Private Physician. am2 07:40 Arm band placed on. aa5 07:43 Triage completed. aa5 07:46 Kieran Soto MD is Attending Physician. rn 07:46 Joshua Alvares RN is Primary Nurse. ll1 07:55 Inserted saline lock: 20 gauge in left antecubital area, using aseptic technique. Blood ll1 collected. 08:16 Patient has correct armband on for positive identification. Bed in low position. Call ll1 light in reach. Side rails up X 1. Pulse ox on. NIBP on. 08:30 Assist provider with lumbar puncture: Performed by Kieran Soto MD CSF is clear. ll1 Procedure was successful. Patient tolerated well. 08:40 Bazzi cath inserted, using sterile technique, 16 Fr., by pr, balloon inflated, to ll1 gravity drainage, urine specimen collected. 08:48 Chest Single View XRAY In Process Unspecified. EDMS 12:25 Brennan Zabala MD is Hospitalizing Provider. rn 15:15 Brain W/Wo Cont In Process Unspecified. EDMS 16:36 Patient admitted, IV remains in place. ll1 Administered Medications: 08:13 Drug: NS 0.9% 1000 ml Route: IV; Rate: 1000 ml; Site: left antecubital; ll1 10:49 Follow up: Response: No adverse reaction; IV Status: Completed infusion; IV Intake: ll1 1000ml 08:13 Drug: NS 0.9% 1000 ml Route: IV; Rate: 1000 ml; Site: left antecubital; ll1 10:49 Follow up: Response: No adverse reaction; IV Status: Completed infusion; IV Intake: ll1 500ml 10:35 Drug: LevaQUIN (levofloxacin) 750 mg Volume: 150 ml; Route: IVPB; Infused Over: 90 ll1 mins; Site: left antecubital; 12:20 Follow up: Response: No adverse reaction; IV Status: Completed infusion; IV Intake: ll1 150ml 12:14 Not Given (Duplicate Order): vancoMYCIN 1 grams IVPB once over 2 hrs rn 12:14 Not Given (Duplicate Order): Rocephin (cefTRIAXone) 1 grams IV at calculated rate once; rn Given slow IV push per pharmacy instructions 12:29 Drug: Rocephin (cefTRIAXone) 2 grams Route: IV; Rate: calculated rate; Site: left ll1 antecubital; 13:06 Follow up: Response: No adverse reaction; IV Status: Completed infusion; IV Intake: ll1 100ml 13:06 Drug: vancoMYCIN 20 mg/kg {Note: 1.25 GM.} Route: IVPB; Site: left antecubital; ll1 16:00 Follow up: Response: No adverse reaction; IV Status: Completed infusion; IV Intake: ll1 250ml 15:00 Drug: Zofran (Ondansetron) 4 mg Route: IVP; Site: left antecubital; ll1 16:01 Follow up: Response: No adverse reaction ll1 16:46 Drug: morphine 4 mg {Note: rass -1.} Route: IVP; Site: left antecubital; ll1 17:05 Follow up: Response: No adverse reaction; Pain is decreased ll1 Intake: 10:49 IV: 1000ml; Total: 1000ml. ll1 10:49 IV: 500ml; Total: 1500ml. ll1 12:20 IV: 150ml; Total: 1650ml. ll1 13:06 IV: 100ml; Total: 1750ml. ll1 16:00 IV: 250ml; Total: 2000ml. ll1 Output: 17:06 Urine: 1150ml (Bazzi); Total: 1150ml. ll1 Outcome: 12:25 Decision to Hospitalize by Provider. rn 16:35 Admitted to Tele accompanied by tech, via stretcher, room 223, with chart, Report ll1 called to LAUREN Mario on 2nd. 16:35 Condition: stable 16:35 Instructed on the need for admit. 17:04 Patient left the ED. ll1 Signatures: Dispatcher [employer] EDMS Kieran Soto MD MD rn Calderon, Audri RN RN aa5 Anita Pritchard am2 Joshua Alvares RN RN ll1 Corrections: (The following items were deleted from the chart) 13:08 10:00 Reassessment: No changes from previously documented assessment. Patient and/or ll1 family updated on plan of care and expected duration. Pain level reassessed. Patient is alert, oriented x 3, equal unlabored respirations, skin warm/dry/pink. ll1 15:14 08:42 BP 113 / 78; Pulse 66bpm; Pulse Ox 100%; Temp 18F; ll1 ll1 15:15 08:42 BP 113 / 78; Pulse 66bpm; Resp 18bpm; Pulse Ox 100%; ll1 ll1 15:16 15:00 Reassessment: No changes from previously documented assessment. Patient and/or ll1 family updated on plan of care and expected duration. Pain level reassessed. ll1 15:17 13:06 vancoMYCIN 20 mg/kg IVPB in left antecubital ll1 ll1
[2021-09-21] MEDS ORDERED: ONDANSETRON 4 MG/2 ML VIAL ONE (14:54)
[2021-09-21] MEDS ORDERED: MORPHINE 4 MG/ML SYR ONE (16:39)
[2021-09-21] MEDS: D5.45NS W/KCL 20MEQ 1,000 ML IV SCH (17:43)
[2021-09-21 19:05] VITALS: BMI 21.1
[2021-09-21] MEDS: ACETAMINOPHEN 500 MG TAB PO PRN (20:54)
--- NOTE | 2021-09-21 22:10 | CON ---
Consultation called by Dr. Zabala because of possible meningitis. History Of Present Illness: Ms. Long is a 61-year-old right-handed patient who was broug ht by her after she developed high fever and confusion after receiving a dosage of Bactrim fo r a urinary tract infection. I spoke with the patient's . He said she had a previous similar reaction a few months ago, after she received a dose of Bactrim. He describes the current event morgan s occurring about 2 hours after she received a dose of Bactrim around 6 p.m. yesterday. By 08:30 p.m . she developed a bad headache with nausea and apparently was staring off. She had cold, chills and a temperature at that time of 99.2. By 9 p.m. the temperature seemed to subside to 98. Later on, he felt she was "burning up." He noted a temperature of 105 by forehead thermometer. She took 1000 mg Tylenol by 10 p.m. she felt little better. However, she woke up around 4 a.m. earlier today and was more disoriented, confused, could not follow instructions and had stiffness with neck rigidity and s he was brought to [facility]. She has not yet had a CT scan of her head. Her lungs did irene w bilateral patchy opacifications suggestive of atypical pneumonia. There was prominent mediastinal lymphadenopathy. Complete blood count with differential showed a normal white blood cell count and v willie mildly low hemoglobin with normal hematocrit and platelets. Her chemistries showed a negative pr ocalcitonin of 0.05, chloride slightly elevated at 111, BUN slightly elevated to 21, creatinine 1.05, glucose 117, lactic acid normal at 0.6, calcium normal at 8.9. Urinalysis was normal. She had a minerva mbar puncture where last tube showed WBCs of 230, RBCs of 10, which is same as the first tube, neutro phils were 93% and she had elevated protein to 151 with a glucose of 60, while her serum glucose was 117. She is COVID-19 negative. The patient was treated for presumptive bacterial meningitis with 2 g of Rocephin and vancomycin and Levaquin. At the time of my evaluation, she was in the emergency ro om. She did alert to her name, but appeared disoriented, confused and was only able to follow simple commands. Moving her feet. She could not show thumbs up side. She appeared perplexed when asked t he date, location, and to follow more complex commands. She had a symmetric face. Past Medical History: Hypertension, interstitial lung disease, scleroderma. Allergies: NO KNOWN DRUG ALLERGIES. SHE REPORTS RECEIVING BOTH DOSES OF COVID-19 VACCINE. Social History: Denies alcohol, tobacco, or IV drug use. Family History: Noncontributory. Review of Systems: Other than noted above, no focal deficits, no GI related issues. She does have the neck stiffness, f ever, headache, mild nausea. Physical Examination: Vital Signs: Blood pressure 117/63, pulse of 76, respiratory rate 20 up to 26, temperature 99.1, oxy gen saturation 98% on room air, weight 111 pounds, height 5 feet 1 inch. BMI is normal. General: Again is resting in bed. She is in no significant distress except she does look disoriente d, confused, does have blanket pulled up over her and she is in a position, lying on the left s andreea. She did alert to her name and did not respond to questions about her orientation, very perplexe d. She eventually did move her feet when asked to do so, but could not show thumbs up sign with her either hand, could not tell date, the day of the week, month and year and was not verbally responsive to questions. Her cranial nerves show no focal deficits. Motor examination, she had increased stif fness in upper and lower extremities with symmetric reflexes, could not fully assess strength, sensat ion, coordination, balance, and gait. Assessment: Ms. Ethan Carlisle is a 61-year-old patient with possible bacterial meningitis. Her ches t x-rays suggest pneumonia. Urinalysis is unremarkable. There is a possibility that this may be an autoimmune response to Bactrim, but that is less likely. It should be noted, however, that this was apparently what was noted previously after she received Bactrim. Plan: 1.Brain MRI without and with contrast. 2.Routine electroencephalogram. 3.Continue antibiotics until the bacterial antigen test of CSF is done. 4.May consider some of the intraseptal in terms of viral although it is less l ikely. 5.Given the exam consistent with a meningitis, she actually has chronic Brudzinski and stiff neck an d confusion. She has an encephalitis and would require aggressive treatment over the next 3 to 5 day s and perhaps switch to oral antibiotics. 6.We will follow up on brain MRI and EEG. LEWIS/RACHEL Voice ID: [id number] Report ID: [id number]
[2021-09-21] MEDS ORDERED: CEFTRIAXONE 2,000 MG in NA CHLORIDE 0.9% 100 ML IV SCH (23:00)
[2021-09-21] MEDS ORDERED: VANCOMYCIN 1.25 GM in NA CHLORIDE 0.9% 250 ML IVPB SCH (23:00)
[2021-09-22] MEDS: ONDANSETRON 4 MG/2 ML VIAL IV PRN ×4 (00:39→20:16)
[2021-09-22] MEDS: MORPHINE 2 MG/ML SYR IV PRN ×4 (00:58→15:59)
[2021-09-22] MEDS: D5.45NS W/KCL 20MEQ 1,000 ML IV SCH ×2 (03:22→07:47)
--- NOTE | 2021-09-22 04:01 | HP ---
Date of Admission: 09/21/2021 Chief Complaint: Headache, fever, chills, altered mental status. History Of Present Illness: This is a 61-year-old very pleasant female patient who came into office yesterday with 3 days' history of burning on urination, frequent urination and cloudy urine. After h er urinalysis was done, she was found to have urinary tract infection. Urine culture was sent and me anwhile she was started on empiric antibiotic, which was Bactrim DS 1 tablet by mouth 2 times a day. She took first dose of this antibiotic last night and another yesterday evening. Sometime as of , she started to have these symptoms, so early this morning, she was brought to the emergency room. After she was evaluated in the ER, she was admitted to the hospital. Allergies: NO KNOWN ALLERGIES. Medications: Lisinopril 20 mg daily, mycophenolate and raloxifene 60 mg daily, and calcium tablets d aily. 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 Constitutional: As mentioned above. Genitourinary: As mentioned above. All other systems reviewed and negative. Past Medical History: Significant for pulmonary fibrosis, scleroderma, hypertension, osteoporosis. Past Surgical History: Appendectomy. Family History: Father had blood clot and kidney cancer and bladder cancer. Mother had scleroderma. Brother, lupus. Social History: Prior history of smoking, not at present time. Use of alcohol, occasional. Immuniz ation status, the patient had her 3 doses of COVID-19 vaccine, first dose on December 27, 2020, second dose on January 21, 2021, third dose on August 06, 2021. Physical Examination: Vital Signs: Temperature 99.1, pulse 76, respiratory rate 20, blood pressure 117/63. General: Awake, alert, oriented, not in distress. The patient appears weaker than normal. She was sleeping when I arrived in her room, but she woke up on verbal command and she was able to recognize me and answered questions appropriately. HEENT: Head atraumatic, normocephalic. Conjunctivae nonerythematous. Sclerae white. Mouth, no thr ush or edema noted. Ears/Nose, no mass, lesion, discharge noted. Neck: Supple. No JVD, lymph nodes, bruit, thyromegaly noted. Lungs: Bilateral good equal air entry. Clear to auscultation. No rhonchi. No rales. Heart: Normal heart sounds, no murmur or gallop. Abdomen: Soft, bowel sounds normal. No guarding, rigidity, tenderness, mass, hepatosplenomegaly, dis tention, or bruit noted. Extremities: No leg edema. No calf tenderness. Skin: No rash, ulcer, cellulitis. Lymphatics: No lymph node enlargement in neck, supraclavicular, infraclavicular region. Neuro: No focal neurological deficit. Chest: Unremarkable. External Genitalia: Deferred. Rectal: Deferred. 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 No focal neurological deficits. Laboratory Data: White count 9, hemoglobin 11.9, platelets 225. Sodium 141, potassium 4.4, chloride 111, bicarb 26, BUN 21, creatinine 1.05, glucose 117. Lactic acid 0.06. Procalcitonin less than 0. 05. COVID-19 test negative. Chest x-ray shows bilateral fibrotic lung changes. Spinal tap was done in the emergency room showing CSF glucose 60, CSF protein 151, and differential on the spinal fluid. WBC 70, RBC 10, 93% neutrophils, 1 lymphocyte. Bacterial antigen pending. CSF culture sent, resul t pending. Impression: 1.Bacterial meningitis. 2.Rule out aseptic meningitis. 3.Pulmonary fibrosis. 4.Scleroderma. 5.Hypertension. 6.Osteoporosis. 7.Urinary tract infection. Plan: Admit patient to hospital for further evaluation and management of this problem. The patient is appropriate for inpatient and is expected to spend 2 midnights in hospital. We will give empiric antibiotic, which is ceftriaxone and vancomycin. I have been communicating with the patient's daught er-in-law who has informed me that about 2 years ago, the patient had similar presentation after she received Bactrim, and she was at [facility] in [place], and after all the workup, she was diagnosed as having aseptic meningitis likely due to Bactrim. So we believe that diagnosis defin itely needs to be kept in back of our mind at this point because the patient did not have any of thes e symptoms up until yesterday after Bactrim was prescribed. Her symptoms started as of last night. Her spinal tap, spinal fluid result shows predominantly neutrophils, so we need to keep in mind about possibility of bacterial meningitis and empiric antibiotics were started, and we will continue that until we receive negative spinal tap culture, spinal fluid culture, which we will follow up on a day- to-day basis. Depending on her clinical condition after 48 hours or so if CSF culture remains negati ve and bacterial antigen comes back negative, then we definitely will consider to discontinue antibio tics at that time. I did communicate all the details with Dr. Loco, neurologist, who was consult ed, and we also discussed about possibility of using steroid, but Dr. Loco has advised us not to start any steroid at this point and we will evaluate her on a day-to-day basis. SCD was ordered for DVT prophylaxis. We will start oral medication at appropriate time. We will not give raloxifene at this time while she is in the hospital as it will increase risk of DVT. She does not need any antihy pertensive medication at this point. I will see her tomorrow morning for followup. Details and plan of treatment discussed with her and also discussed all the details with the patient's [id number] w who will communicate with the rest of the family. PRIYANKA/MODL Voice ID: [id number]
[2021-09-22 06:16] LABS: Absolute Lymphocytes (CBC) 1.3 K/uL (0.7-4.9); Basophils % 0.5 % (0-1.3); Hematocrit 32.8 % (36.0-45.0); Lymphocytes % 28.6 % (15.3-44.8); MPV 7.8 fL (7.6-11.3); RBC Red Blood Cell Count 3.49 M/uL (3.86-4.86)
[2021-09-22 06:46] LABS: BUN Blood Urea Nitrogen 11 mg/dL (7-18); Bicarbonate 24 mmol/L (21-32); Glucose Level 114 mg/dL (74-106); Potassium 4.3 mmol/L (3.5-5.1); Sodium Level 143 mmol/L (136-145)
[2021-09-22] MEDS ORDERED: ONDANSETRON 4 MG/2 ML VIAL IV ONE (07:14)
[2021-09-22] MEDS: CEFTRIAXONE 2,000 MG in NA CHLORIDE 0.9% 100 ML IV SCH ×2 (07:57→20:15)
[2021-09-22] MEDS ORDERED: lisinopriL 10 MG TAB PO ONE (09:17)
[2021-09-22] MEDS: MYCOPHENOLATE MOFETIL 500 MG PO SCH ×2 (10:00→20:17)
--- NOTE | 2021-09-22 10:29 | RAD REPORT ---
EXAM DESCRIPTION: MRI - Brain W/Wo Cont - 09/22/2021 10:14 am CLINICAL HISTORY: encephalitis Headache, drowsiness COMPARISON: Head Brain Wo Cont dated 08/28/2019 TECHNIQUE: Multi-sequence, multiplanar MR imaging of the brain was performed with contrast. FINDINGS: No intracranial hemorrhage, hydrocephalus, or extra-axial fluid collection.Small left post erior frontal subcortical 3 mm area of T2/FLAIR hyperintensity noted, nonspecific. No edema or shift of midline structures. No intracranial mass. DWI is negative for acute CVA. The midline structures are normally formed. Mastoid air cells and paranasal sinuses are clear. Post-contrast images show no abnormal enhancement to suggest tumor or infection. IMPRESSION: No acute intracranial process is identified. No significant abnormal finding seen. No pathologic post-contrast enhancement suspected.
[2021-09-22] MEDS: VANCOMYCIN 750 MG in NA CHLORIDE 0.9% 150 ML IVPB SCH (12:38)
--- NOTE | 2021-09-22 20:02 | PN ---
Date of Progress Note: 09/22/2021 Subjective: The patient was seen this morning for followup. No new complaints or problems reported by patient, lying in bed, not in distress. Overall, she is much better today than yesterday. She welch d some headache last night, which was not well control with Tylenol. So, nurse contacted me and at t hat time, morphine was ordered. The patient responded very well to morphine. After she received mor phine, her headache improved and she was able to get some sleep. This morning she is feeling much be tter. She looks lot better compared to yesterday evening. Still has some headache but overall much better. Objective: Vital Signs: Reviewed. HEENT: Unremarkable. Lungs: Bilateral good equal air entry. Presence of rales noted in both lower half lung estes, whic h is chronic, unchanged due to her pulmonary fibrosis. Heart: Sounds normal. Abdomen: Soft. Bowel sounds normal. No guarding, rigidity, tenderness, distention. Extremities: No leg edema. Impression: 1.Meningitis. 2.Hypertension. 3.Pulmonary fibrosis. Plan: We will go ahead and continue current empiric antibiotic, which is ceftriaxone and vancomycin. We will go ahead and reduce IV fluid to 30 cc/hour. Start the patient on diet. Continue SCD for D VT prophylaxis and the patient was advised how to move her both lower extremities while she is awake to reduce any chances of DVT. Ambulation was encouraged. We will consult Physical Therapy to assist with ambulation. So far CSF culture and blood culture remains negative. I will see her tomorrow fo r followup. Bacterial antigen result is pending. I did call patient's [id number] this morning to give her updates. Possible discharge this weekend depending on her condition. PRIYANKA/MODL Voice ID: [id number] Report ID: [id number]
[2021-09-23] MEDS: CEFTRIAXONE 2,000 MG in NA CHLORIDE 0.9% 100 ML IV SCH ×2 (08:37→20:15)
[2021-09-23] MEDS: lisinopriL 10 MG TAB PO SCH (08:37)
[2021-09-23] MEDS: MYCOPHENOLATE MOFETIL 500 MG PO SCH ×3 (08:38→20:15)
[2021-09-23] MEDS: D5.45NS W/KCL 20MEQ 1,000 ML IV SCH (09:32)
[2021-09-23] MEDS: VANCOMYCIN 750 MG in NA CHLORIDE 0.9% 150 ML IVPB SCH (12:16)
--- NOTE | 2021-09-23 15:18 | PN ---
Date of Progress Note: 09/23/2021 Subjective: The patient was seen this morning for followup. She is feeling much better, looking a l ot better, almost back to her normal baseline except has some headache, which is better compared to b efore also. Had some nausea yesterday, but no vomiting. Objective: Vital signs: Reviewed. HEENT: Unremarkable. Lungs: Bilateral good equal air entry with presence of rales noted in lower half of both lung region unchanged from her baseline. Heart: Sounds normal. Abdomen: Soft. Bowel sounds normal. No guarding, rigidity, tenderness, or distention. Extremities: No leg edema. Laboratory Data: The patient's blood culture, urine culture, and CSF fluid culture remains negative. CSF bacterial antigen pending. Impression: 1.Meningitis. 2.Pulmonary fibrosis. 3.Anemia, unspecified. Plan: We will go ahead and continue current empiric antibiotic, which is ceftriaxone and vancomycin. The patient's CSF bacterial antigen result is pending. I did communicate with our lab and specimen was sent to [facility] yesterday evening and [facility] does not provide this testing s o they will send it to another reference lab on Saturday. By the time, we get the results back, it pro bably will be Saturday of this next week. She is afebrile and clinically improving very well. I di d communicate with Dr. Loco and considering how the patient has improved over the last 48 hours o r so, Dr. Loco has informed me that it will be appropriate for patient to go home tomorrow with o ral antibiotics like Augmentin for maybe a week or so with close followup as outpatient and I feel co mfortable discharging her tomorrow as long as no other problem develops between now and tomorrow. Th e patient was made aware of this tentative plan and I did call her [id number] and communicated with her regarding all the details. PRIYANKA/MODL Voice ID: [id number] Report ID: [id number]
[2021-09-24] MEDS ORDERED: VANCOMYCIN 750 MG in NA CHLORIDE 0.9% 150 ML IVPB SCH ×2
[2021-09-24 04:24] VITALS: BP 138/84
[2021-09-24] MEDS: ACETAMINOPHEN 500 MG TAB PO PRN (06:27)
[2021-09-24] MEDS: MYCOPHENOLATE MOFETIL 500 MG PO SCH (08:08)
[2021-09-24] MEDS: CEFTRIAXONE 2,000 MG in NA CHLORIDE 0.9% 100 ML IV SCH (08:08)
[2021-09-24] MEDS: lisinopriL 10 MG TAB PO SCH (08:08)
[2021-09-24 09:09] VITALS: O2SAT 97
[2021-09-24 09:34] VITALS: TEMP 97.2
--- NOTE | 2021-09-24 12:06 | DS ---
Date of Discharge: 09/24/2021 Disposition: Discharged to go home. Physical Examination: HEENT: Unremarkable. Lungs: Bilateral good equal air entry. Presence of rales noted in lower half of both lung estes, u nchanged, not in respiratory distress. Heart: Sounds normal. Abdomen: Soft. Bowel sounds normal. No guarding, rigidity, tenderness, distention. Extremities: No leg edema. SPECIAL DIET COOK: No focal neurological deficit. Neck: Supple. No evidence of any neck stiffness. Discharge Medications And Instructions: 1.Continue all prior home medication except do not take Bactrim. 2.Please wear a bracelet stating you are allergic to Bactrim. 3.Take Augmentin 875 mg 1 tablet by mouth 2 times a day with food for 1 week and prescription was nt to [facility] from my office. 4.Follow up at my office on 09/26/2021 at 9 a.m. 5.Keep yourself well hydrated, avoid any exertion for next 1-2 weeks, get adequate rest, may use Tyl enol 500 mg by mouth 4 times a day as needed for headache, avoid excessive bright sunlight exposure. Laboratory Data: Labs done during this hospitalization. Influenza A and B test negative. Urine cul ture done during this admission negative. CSF culture negative. CSF bacterial antigen pending. Blo od culture negative. Urine culture, which was done on outpatient basis day prior to admission was gr owing E coli sensitive to Bactrim, Augmentin, and multiple other antibiotics. Initial sodium 141, po tassium 4.4, chloride 111, bicarb 26, BUN 21, creatinine 1.05, glucose 117. Lactic acid 0.6. Procal citonin less than 0.05. Repeat sodium on 09/22/2021, 143, potassium 4.3, chloride 112, bicarb 24, BU N 11, creatinine 0.59, glucose 114. Initial white count 9, hemoglobin 11.9, platelets 225. Repeat C BC, white count 4.6, hemoglobin 10.4, platelets 179. CSF colorless clear; 70 wbc's, 10 rbc's, 93 clarke trophils, 1 lymphocytes, 7 mononuclear cells. CSF glucose 60, CSF protein 151. MRI of brain was unr emarkable. Hospital Course: This is a 61-year-old white pleasant female patient, who came in to see me at offic e with urinary tract infection symptoms and her urinalysis was abnormal consistent with UTI and urine culture was sent and the patient was started on empiric antibiotic, Bactrim DS 1 tablet 2 times a da y. The patient took her first dose of this Bactrim and later on same particular night, started to welch ve symptoms with headache, fever, chills, subsequently altered mental status. The patient's family b rought her to emergency room as she had similar presentation in the past after taking Bactrim and she was at another hospital and she was diagnosed as having aseptic meningitis related to Bactrim. Unfo rtunately, the patient had not informed me about this allergic reaction that she had in the past, so I was not aware of it so after she came into our hospital, she had a spinal tap done and after that s he was started on empiric antibiotic, which was ceftriaxone and vancomycin. Neurology consultation f berta Loco was requested and he evaluated the patient. We continued her on antibiotics, Tyleno l for headache, and then subsequently morphine for headache was ordered. The patient's condition sta rted improving rapidly after the hospital admission and as of yesterday, she is almost back to her no rmal self. Today, she feels great except some slight headache, which is well controlled with Tylenol . She has not taken any morphine in over 24 hours. No nausea, no vomiting. She had some neck stiff ness when she came in, which has resolved now. Her neck is supple. She feels great. She is ambulat ing well. No other complaints reported. I have advised her that she should go ahead and wear a brac elet stating that she is allergic to Bactrim. I have updated my office record stating that she is al lergic to Bactrim and hospital record also now states that she is allergic to Bactrim. Her CSF bacte rial antigen result is pending and it probably will not be available until Saturday of this coming w [place] or so. I have communicated with Dr. Loco and he is comfortable discharging the patient to go home today with oral antibiotics and the patient is medically stable for discharge. We treated her as if she had bacterial meningitis and we really have concerned that this is very like ly aseptic meningitis due to Bactrim considering her presentation at this time as family says is iden tical to how she was and when she had similar reaction to Bactrim, when she was admitted to outside h ospital. So with that in mind, we believe that this is very likely aseptic meningitis, but we will m laura that final decision after we get negative bacterial antigen results of which probably will be reji ilable this coming week on Saturday or so. Final Diagnoses: 1.Meningitis. 2.Anemia. 3.Pulmonary fibrosis. 4.Scleroderma. 5.Hypertension. 6.Osteoporosis. 7.Urinary tract infection. PRIYANKA/MODL Voice ID: [id number] Report ID: [id number]
== END 2021-09-24 11:15 | disposition home or self-care (01) | DRG 98 ==
LOC: ER 07:30 → ERHOLD 15:21 → 2ND 16:35
PROVIDERS: ADMIT Internal Medicine; ATTEND Internal Medicine
PROC: 009U3ZX Drainage of Spinal Canal, Percutaneous Approach, Diagnostic (ICD-10-PCS; principal; 2021-09-21)
DX: G03.0 Nonpyogenic meningitis (principal); N39.0 Urinary tract infection, site not specified; D64.9 Anemia, unspecified; I10 Essential (primary) hypertension; M43.6 Torticollis; M81.0 Age-related osteoporosis without current pathological fracture; J84.10 Pulmonary fibrosis, unspecified; M34.9 Systemic sclerosis, unspecified; T36.8X5A Adverse effect of other systemic antibiotics, initial encounter; Z88.1 Allergy status to other antibiotic agents; Z90.49 Acquired absence of other specified parts of digestive tract; Z79.899 Other long term (current) drug therapy; Z20.822 Contact with and (suspected) exposure to COVID-19
CPT/HCPCS: 36415; 51702; 62270; 70553; 71045; 80048; 80202; 81003; 81015; 82945; 83605; 84145; 84157; 85025; 87040; 87070; 87086; 87088; 87804; 89050; 93005; 96361; 96365; 96366; 96367; 96375; 97116; 97161; 99285; A9577; J0696; J2270; J2405; J3370; J7030; J7050; U0003

== ENCOUNTER 2021-10-25 07:36 | Day surgery (SDC) | payer BC ==
[2021-10-25] MEDS ORDERED: Zoledronic Acid/Mannitol/Water 5 MG/100 ML INFUS.BOT IV ONE (08:00)
[2021-10-25 08:12] VITALS: O2SAT 100; BMI 19.5
[2021-10-25 08:43] VITALS: BP 123/76; TEMP 98.7
== END 2021-10-25 08:40 | disposition home or self-care (01) ==
LOC: DS 07:36
PROVIDERS: ATTEND Obstetrics & Gynecology
DX: M81.0 Age-related osteoporosis without current pathological fracture (principal)
CPT/HCPCS: 96365; J3489

== ENCOUNTER 2022-09-25 18:01 | Emergency (ER) | payer BC ==
--- OUTSIDE RECORDS SUMMARY | 2022-09-25 18:06 | XMS REPORT | Continuity of Care Document ---
:1960 Author Organization [facility] t Address [address] [place] [place] [address] Care Team Providers Name Role Phone Brenda Farah MD Primary Care Physician BRENDA FARAH Attending Clinician Unavailable Tanesha Menon RN Attending Clinician Unavailable Callie Milian MA Attending Clinician Unavailable IWONA KAPOOR Attending Clinician Unavailable RAJANI KAPOOR Attending Clinician Unavailable BREDNA FARAH M.D. Attending Clinician Unavailable TYRONE PELLETIER I. Attending Clinician Unavailable OBDULIO BAUTISTA Admitting Clinician Unavailable Payers Payer Name Policy Type Policy Number Effective Date Ex[place] Date S [facility] [id number] [id number] 2020 00:00:00 OUT OF STATE Problems Condition Condition Condition Status Onset Resolution Last Treating Co mments Source Name Details Category Date Date Treatment Clinician Date Gastroesop Gastroesop Disease Active U T hageal hageal 04-25 Health reflux reflux 00:00: disease disease 00 Sjogren's Sjogren's Disease Active [place] syndrome syndrome 04-25 Health 00:00: 00 Age-relate Age-relate Disease Active U T d d 04-25 Health osteoporos osteoporos 00:00: is without is without 00 current current pathologic pathologic al al fracture fracture 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 Physic i ans Vitamin D Vitamin D Problem Active UT insufficie insufficie Ph ysici ncy ncy ans Bronchospa Bronchospa Problem Active U T sm sm Physici ans Dyspnea on Dyspnea on Problem Active U T exertion exertion Physic i ans Encounter Encounter Problem Active UT for for Physici long-term long-term ans (current) (current) use of use of high-risk high-risk medication medication Interstiti Interstiti Problem Active U T al lung al lung Physici disease disease ans Osteopenia Osteopenia Problem Active U T Physici ans Leukopenia Leukopenia Problem Active U T , , Physici unspecifie unspecifie an s d type d type Raynaud's Raynaud's Problem Active UT disease disease Physici ans 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 Physici ans Sjogrens Sjogrens Problem Active UT syndrome syndrome Physic i ans Chronic Chronic Problem Active UT reflux reflux Physici esophagiti esophagiti an s s s Allergies, Adverse Reactions, Alerts Allergy Allergy Status Severity Reaction(s) Onset Inactive Treating Comm ents Source Name Type Date Date Clinician Sulfamet Propensi Active 2020-11 UT hoxazole ty to 12-25 Health -Trimeth adverse 00:00: oprim reaction 00 s Ibandron Propensi Active Itching UT ic Acid ty to 04-25 Health adverse 00:00: reaction 00 s NO KNOWN Allergy Active [facility] Family History Family Member Diagnosis Comments Start Date Stop Date Source Mother Family history of [facility] Phys icians scleroderma Social History Social Habit Start Date Stop Date Quantity Comments Source History SDOH [facility] Alcohol Std Drinks Medica l Center History SDOH [facility] Alcohol Binge Medical [facility] History SDOH [facility] Alcohol Comment Medical C enter History of tobacco Current smoker [facility] use Exposure to 2022-05-03 2022-05-13 Not sure [facility] SARS-CoV-2 (event) 00:00:00 08:29:00 History [facility] 2019-08-29 2019-08-[address] [facility] Stress 00:00:00 00:00:00 Medical Center History [facility] 2019-08-29 2019-08-[address] [facility] Alcohol Frequency 00:00:00 00:00:00 Medical Center Tobacco use and 2019-08-28 2019-08-[address] [facility] exposure 00:00:00 00:00:00 [facility] Alcohol intake 2019-08-28 2019-08-28 [facility]00 [facility] alcohol [facility] (finding) Sex Assigned At [address] [facility] 00:[facility] Smoking Status Start Date Stop Date Source Ex-smoker 2022-05-15 00:00:00 2022-05-15 00:00:00 [facility] Never smoker [facility] Medications Ordered Filled Start Stop Current Ordering Indication Dosage Frequency Signature Comments Components Source Medication Medication Date Date Medication? Clinician (SIG) Name Name cefadroxil 2021- No [id number] 500mg Q.5D Take 1 UT (Duricef) 05-22 capsule Health 500 MG 00:00: 04:59 (500 mg capsule 00 :00 total) by mouth in the morning and 1 capsule (500 mg total) in the evening. Do all this for 7 days. Calcium 250 Yes TAKE 1 UT MG capsule 05-15 CAPSULE Health 14:53: DAILY 43 fluticasone 2021- No [id number] 1{spray Q.5D Administer UT (Flonase) 05-15 } 1 spray Health 50 MCG/ACT 00:00: 04:59 into each nasal spray 00 :00 nostril in the morning and 1 spray in the evening. prn. lisinopril Yes [id number] TAKE ONE UT 20 MG 6-15 (1) Health tablet 00:00: TABLET(S) 00 BY MOUTH ONCE A DAY. mycophenola Yes [id number] TAKE ONE UT te 3-22 (1) Health (Cellcept) 00:00: TABLET(S) 500 MG 00 BY MOUTH tablet TWICE A DAY. fluticasone 2020-11- No [id number] 1{spray Q.5D Administer UT (Flonase) 12-25 } 1 spray Health 50 MCG/ACT 00:00: 00:00 into each nasal spray 00 :00 nostril 2 (two) times a day. prn cevimeline 2020-11- No [id number] 30mg Q.[id number] Take 1 UT (Evoxac) 30 12-25 [id number] capsule Health MG capsule 00:00: 00:00 3D (30 mg 00 :00 total) by mouth 3 (three) times a day. Calcium 250 Yes TAKE 1 UT MG capsule 6-08 CAPSULE Health 09:33: DAILY 45 fluticasone Yes prn UT (Flonase) 1-01 Health 50 MCG/ACT 00:00: nasal spray 00 mycophenola 2018-11 Yes sarcoidosis 1000mg Q.5D Take 1,[address] [facility] 0-15 mg by Rosi (CELLCEPT) 21:02: mouth 2 Medi ode 500 mg 08 (two) Center tablet times daily. lisinopril 2018-11 Yes 20mg QD Take [address] (PRINIVIL,Z 0-15 by mouth Luke s ESTRIL) 20 21:02: daily. Medic al MG tablet 08 Center naproxen 2018-11 Yes pain 220mg Take [address] (ALEVE,ANAP 0-15 mg by [facility] LUISITO,MIDOL) 21:02: mouth 2 Medi doe 220 MG 08 (two) Center tablet times daily with breakfast and dinner. sulfamethox 2018-11 Yes bacterial 1{tbl} Q.5D Take [address] azole-trime 0-15 urinary tablet by Rosi thoprim 21:02: tract mouth 2 Medica l (BACTRIM 08 infection (two) Cente r DS) 800-160 times mg per daily. tablet cholecalcif 2018-11 Yes 1000U Q.5D Take 1,[address] abby 0-15 Units by [employer] (VITAMIN 21:02: mouth 2 Medica l D3) 1,000 08 (two) Center unit (25 times mcg) tablet daily. cholecalcif 2018-11 Yes 1000U Q12H Take 1,000 UT abby 0-15 Units by [facility] (Vitamin 00:00: mouth D-3) 25 MCG 00 every 12 (1000 UT) (twelve) tablet hours. naproxen 2018-11 Yes 220mg Take 220 UT sodium 0-15 mg by Health (Aleve) 220 00:00: mouth. prn MG tablet 00 cholecalcif 2018-11 Yes 1000U Take 1,000 UT abby 0-15 Units by [facility] (Vitamin 00:00: mouth 1 D-3) 25 MCG 00 (one) time (1000 UT) each day tablet in the morning. naproxen 2018-11 Yes 220mg Take 220 UT sodium 0-15 mg by Health (Aleve) 220 00:00: mouth. prn MG tablet 00 Lisinopril Lisinopril Yes BRENDA TAKE ONE UT 20 MG Oral 20 MG Oral 3-14 GAGAN M.D. (1) Physici Tablet Tablet 00:00: TABLET(S) ans 00 BY MOUTH ONCE A DAY. lisinopril Yes 20mg QD Take 20 mg U T 20 MG 3-14 by mouth 1 Health tablet 00:00: (one) time 00 each day. Mycophenola Mycophenola 2015-0 Yes BRENDA Q0.5D TAKE TWO UT te Mofetil te Mofetil 2-04 GAGAN M.D. (2) Physici 500 MG Oral 500 MG Oral 00:00: TABLET(S) ans Tablet Tablet 00 BY MOUTH TWICE A DAY. Calcium Calcium Yes 1 QD TAKE 1 UT CAPS CAPS CAPSULE Physici DAILY ans Vitamin D Vitamin D Yes 1 QD TAKE 1 UT 1000 UNIT 1000 UNIT TABLET Phy sici TABS TABS DAILY. ans Zinc CAPS Zinc CAPS Yes 1 QD TAKE 1 UT CAPSULE Physici DAILY ans Multivitami Multivitami Yes 1 QD TAKE 1 UT ns TABS ns TABS TABLET Physici DAILY. ans Vital Signs Vital Name Observation Time Observation Value Comments Source Systolic blood 2022-05-15 19:51:00 131 mm[Hg] UT Hea lth pressure Diastolic blood 2022-05-15 19:51:00 77 mm[Hg] UT He alth pressure Heart rate 2022-05-15 19:51:00 67 /min [facility]alt h Body temperature 2022-05-15 19:51:00 36.67 Mary [place] [facility] ealth Body weight 2022-05-15 19:51:00 49.85 kg [facility]alt h BMI 2022-05-15 19:51:00 19.47 kg/m2 [facility]alt [facility] Systolic blood 2020-10-25 10:20:00 142 mm[Hg] Location: RUE; UT P hysicians pressure Position: Sitting Diastolic blood 2020-10-25 10:20:00 93 mm[Hg] Location: RUE; [facility] Physicians pressure Position: Sitting Weight 2020-10-25 10:20:00 116.9 [lb_av] [facility] Phys icians Body mass index 2020-10-25 10:20:00 20.71 kg/m2 [facility] Ph ysicians (BMI) [Ratio] Heart Rate 2020-10-25 10:20:00 80 /min Location: R [facility] Physi cians Carotid; Body temperature 2020-10-25 10:20:00 98.1 [degF] [facility] P [facility]ysicians BP Systolic 2019-10-27 14:03:00 121 mm[Hg] Location: RUE; [facility] Phy sicians Position: Sitting BP Diastolic 2019-10-27 14:03:00 86 mm[Hg] Location: RUE; [facility] Phy sicians Position: Sitting Weight 2019-10-27 14:03:00 113.1875 [lb_av] [facility] P hysicians Body Mass Index 2019-10-27 14:03:00 20.05 kg/m2 [facility] Ph ysicians Calculated Heart Rate 2019-10-27 14:03:00 80 /min [facility] Physi cians BP Systolic 2019-04-14 09:36:00 127 mm[Hg] Location: RUE; [facility] Phy sicians Position: Sitting BP Diastolic 2019-04-14 09:36:00 86 mm[Hg] Location: RUE; [facility] Phy sicians Position: Sitting Height 2019-04-14 09:36:00 63 [in_us] [facility]i cians Weight 2019-04-14 09:36:00 118.3125 [lb_av] [facility] P [facility]ysicians Body Mass Index 2019-04-14 09:36:00 20.96 kg/m2 [facility] Ph ysicians Calculated Heart Rate 2019-04-14 09:36:00 70 /min Location: R [facility]i cians Radial; BP Systolic 2018-10-07 08:12:00 135 mm[Hg] Location: RUE; [facility]y sicians Position: Sitting BP Diastolic 2018-10-07 08:12:00 89 mm[Hg] Location: RUE; [facility] Phy sicians Position: Sitting Height 2018-10-07 08:12:00 63 [in_us] [facility]i cians Weight 2018-10-07 08:12:00 119.25 [lb_av] [facility]y sicians Body Mass Index 2018-10-07 08:12:00 21.12 kg/m2 [facility] Ph ysicians Calculated Heart Rate 2018-10-07 08:12:00 72 /min Location: R [facility] Physi cians Radial; BP Systolic 2018-03-04 09:33:00 107 mm[Hg] Location: RUE; [facility] Phy sicians Position: Sitting BP Diastolic 2018-03-04 09:33:00 73 mm[Hg] Location: RUE; [facility] Phy sicians Position: Sitting Weight 2018-03-04 09:33:00 117.5 [lb_av] [facility] Phys icians Body Mass Index 2018-03-04 09:33:00 20.81 kg/m2 [facility] Ph ysicians Calculated Heart Rate 2018-03-04 09:33:00 73 /min Location: R [facility] Physi cians Carotid; Procedures Procedure Date / Time Performed Performing Clinician [facility] e COMPREHENSIVE METABOLIC 2022-05-15 21:06:00 Brenda Farah ME H ealth PANEL CBC AND DIFFERENTIAL 2022-05-15 21:06:00 Brenda Farah ME Heal th EKG w/Rhythm Strip 2021-01-12 00:00:00 UT Physic ians [QL] CBC (INCLUDES DIFF/PLT) 2020-10-25 00:00:00 [facility] Physicians [QL] CMP W/EGFR 2020-10-25 00:00:00 UT Physician cortes Kumar [facility] - 2020-10-18 00:00:00 UT Physician s COVID-19/SARS-Cov-2 Complete PFTs w/DLCO and 2020-07-26 00:00:00 [facility]icians Lung Volumes [N] 2D Echo complete, with 2020-07-26 00:00:00 U T Physicians Doppler [id number] [QL] CBC (INCLUDES DIFF/PLT) 2020-04-06 00:00:00 [facility] [QL] CMP W/EGFR 2020-04-06 00:00:00 UT Physician s [QLH] CBC (INCLUDES 2019-10-27 00:00:00 [facility] Physi cians DIFF/PLT) [QLH] CMP W/EGFR 2019-10-27 00:00:00 UT Physicia ns Complete PFTs w/DLCO and 2019-04-14 00:00:00 [facility] Physicians Lung Volumes [QLH] CBC (INCLUDES 2019-04-14 00:00:00 [facility] Physi cians DIFF/PLT) [QLH] CMP W/EGFR 2019-04-14 00:00:00 UT Physicia ns [QLH] VITAMIN D, 25-HYDROXY, 2019-04-14 00:00:00 [facility] LC/MS/MS [N] 2D Echo complete, with 2019-04-14 00:00:00 U T Physicians Doppler [id number] [QLH] CMP W/EGFR 2019-01-02 00:00:00 UT Physicia ns [QLH] URINALYSIS, COMPLETE 2019-01-02 00:00:00 U T Physicians [QLH] CBC (INCLUDES 2018-12-24 00:00:00 [facility] Physi cians DIFF/PLT) [QLH] CBC (INCLUDES 2018-10-07 00:00:00 [facility] Physi cians DIFF/PLT) [QLH] CMP W/EGFR 2018-10-07 00:00:00 UT Physicia ns [QLH] LIPID PANEL 2018-10-07 00:00:00 UT Physici ans Complete PFTs w/DLCO and 2018-09-26 00:00:00 [facility] Physicians Lung Volumes [N] 2D Echo complete, with 2018-06-02 00:00:00 U T Physicians Doppler [id number] [QLH] CBC (INCLUDES 2018-03-05 00:00:00 [facility] Physi cians DIFF/PLT) [QLH] CMP W/EGFR 2018-03-05 00:00:00 UT Physicia ns [QLH] URINALYSIS, COMPLETE 2018-03-05 00:00:00 U T Physicians [QLH] VITAMIN D, 25-HYDROXY, 2018-03-05 00:00:00 [facility] Physicians LC/MS/MS Complete PFTs w/DLCO and 2018-03-04 00:00:00 [facility] Physicians Lung Volumes [QLH] CMP W/EGFR 2018-03-04 00:00:00 UT Physicia ns [QLH] CBC (INCLUDES 2018-03-04 00:00:00 UT Physi cians DIFF/PLT) [QLH] VITAMIN D, 25-HYDROXY, 2018-03-04 00:00:00 [facility] Physicians LC/MS/MS [N] 2D Echo complete, with 2018-03-04 00:00:00 U T Physicians Doppler [id number] Complete PFTs w/DLCO and 2017-08-13 00:00:00 [facility] Physicians Lung Volumes [QLH] CBC (INCLUDES 2017-08-13 00:00:00 [facility] Physi cians DIFF/PLT) [QLH] CMP W/EGFR 2017-08-13 00:00:00 UT Physicia ns Plan of Care Planned Activity Planned Date Details Comments Source Diagnostic Test 2021-01-12 EKG w/Rhythm [facility] Physician s Pending 00:00:00 Strip [code = EKG w/Rhythm Strip] Future Scheduled 2020-10-25 Complete PFTs UT Physici ans Test 00:00:00 w/DLCO and Lung Volumes [code = Complete PFTs w/DLCO and Lung Volumes] Future Scheduled 2020-10-25 [N] 2D Echo [facility] Physicia ns Test 00:00:00 complete, with Doppler 22554 [code = [N] 2D Echo complete, with Doppler 95306] Future Scheduled 2020-10-25 Complete PFTs UT Physici ans Test 00:00:00 w/DLCO and Lung Volumes [code = Complete PFTs w/DLCO and Lung Volumes] Diagnostic Test 2019-10-13 [N] 2D Echo UT Physician s Pending 00:00:00 complete, with Doppler [id number] [code = [N] 2D Echo complete, with Doppler 04696] Diagnostic Test 2018-09-26 Complete PFTs UT Physicia ns Pending 00:00:00 w/DLCO and Lung Volumes [code = Complete PFTs w/DLCO and Lung Volumes] Diagnostic Test 2018-06-02 [N] 2D Echo UT Physician s Pending 00:00:00 complete, with Doppler 53333 [code = [N] 2D Echo complete, with Doppler 59572] Diagnostic Test 2018-06-02 [N] 2D Echo UT Physician s Pending 00:00:00 complete, with Doppler 13891 [code = [N] 2D Echo complete, with Doppler 01086] Future Scheduled Complete PFTs Approx [id number] [facility] Phy sicians Test w/DLCO and Lung Volumes [code = Complete PFTs w/DLCO and Lung Volumes] Future Scheduled [N] 2D Echo Approx 03Sep2018 [facility] Test complete, with Doppler 25731 [code = [N] 2D Echo complete, with Doppler 76084] Future Scheduled [QLH] CBC Approx [id number] [facility] Test (INCLUDES DIFF/PLT) [code = [QLH] CBC (INCLUDES DIFF/PLT)] Future Scheduled [QLH] CMP W/EGFR Approx [id number] [facility] Test [code = [QLH] CMP W/EGFR] Future Scheduled [QLH] CBC Approx 02Apr2018 [facility] Test (INCLUDES DIFF/PLT) [code = [QLH] CBC (INCLUDES DIFF/PLT)] Future Scheduled [QLH] CMP W/EGFR Approx [id number] [facility] Test [code = [QLH] CMP W/EGFR] Future Scheduled [QLH] URINALYSIS, Approx [id number] [facility] Test COMPLETE [code = [QLH] URINALYSIS, COMPLETE] Future Scheduled [QLH] VITAMIN D, Approx 02Apr2018 [facility] Test 25-HYDROXY, LC/MS/MS [code = [QLH] VITAMIN D, 25-HYDROXY, LC/MS/MS] Future Scheduled Complete PFTs Approx 24Sep2018 [facility] sicians Test w/DLCO and Lung Volumes [code = Complete PFTs w/DLCO and Lung Volumes] Future Scheduled [QLH] LIPID PANEL Approx [id number] [facility] Test [code = [QLH] LIPID PANEL] Future Scheduled [QLH] CBC Approx 21Jan2019 [facility] Test (INCLUDES DIFF/PLT) [code = [QLH] CBC (INCLUDES DIFF/PLT)] Future Scheduled [N] 2D Echo Before next [facility] Physicia ns Test complete, with appointment Doppler 17840 [code = [N] 2D Echo complete, with Doppler 12804] Future Scheduled Complete PFTs Approx 13Oct2019 Phy sicians Test w/DLCO and Lung Volumes [code = Complete PFTs w/DLCO and Lung Volumes] Future Scheduled [QLH] CBC Approx 15Jul2019 Phys icians Test (INCLUDES DIFF/PLT) [code = [QLH] CBC (INCLUDES DIFF/PLT)] Future Scheduled [QLH] CMP W/EGFR Approx 15Jul2019 Physicians Test [code = [QLH] CMP W/EGFR] Future Scheduled [QLH] CMP W/EGFR Approx 21Jan2019 Physicians Test [code = [QLH] CMP W/EGFR] Future Scheduled [QLH] URINALYSIS, Approx 21Jan2019 Physicians Test COMPLETE [code = [QLH] URINALYSIS, COMPLETE] Future Scheduled Complete PFTs Approx 13Oct2019 Phy sicians Test w/DLCO and Lung Volumes [code = Complete PFTs w/DLCO and Lung Volumes] Future Scheduled [QL] CBC Approx 23Jan2021 Phys icians Test (INCLUDES DIFF/PLT) [code = [QL] CBC (INCLUDES DIFF/PLT)] Future Scheduled [QL] CMP W/EGFR Approx 23Jan2021 P hysicians Test [code = [QL] CMP W/EGFR] Encounters Start End Encounter Admission Attending Care Care Encounter Source Date/Time Date/Time Type Type Clinicians Facility Department ID 2022-08-30 Outpatient [facility] [id number] [place] 06:34:22 [id number] [facility] 2021-10-24 Outpatient [facility] [id number] [place] 09:42:27 [facility] 2021-10-17 Outpatient [facility] [id number] [place] 08:14:58 [facility] 2021-10-16 Outpatient [facility] [id number] [place] 17:40:16 [facility] 2022-05-15 2022-05-15 Office MARGUERITE Farah 6410 [id number] [place] 15:00:00 15:30:00 Visit Brenda SQUIRESN [id number] [facility] [id number] 2021-10-24 2021-10-24 Office MARGUERITE Farah 6410 [id number] [place] 10:00:00 10:00:[address] [id number] Health 9.2.7.2.686 [id number] 2021-06-12 2021-06-12 Telephone Tanesha Menon UTP 6410 1. [id number] [place] 00:00:00 00:00:[address] 350.1.1 3.58 Health 9.2.7.2.686 [id number] 2021-05-26 2021-05-26 Telephone Tanesha Menon UTP 6410 1. 2.840.114 [id number] [place] 00:00:00 00:00:[address] 350.1.1 3.58 Health 9.2.7.2.686 [id number] 2021-05-10 2021-05-10 EXT [facility] OP Gagan, EXT MSRDP [id number] [place] 00:00:00 00:00:00 Brenda LOCATION [id number] H ealth [id number] [id number] 2021-05-10 2021-05-10 EXT MH OP Gagan, EXT MSRDP 1.2.840.114 1 [id number] [place] 00:00:00 00:00:00 Brenda LOCATION 350.1.13.58 H ealth 9.2.7.2.686 [id number] 2021-04-26 2021-04-26 Telephone Callie Milian UTP 6410 1.2.840.1 [id number] [place] 00:00:00 00:00:[address] [id number] Health [id number] [id number] 2021-04-25 2021-04-25 Office Gagan UTP 6410 [id number] [id number] [place] 09:11:05 10:51:[address] 350.1.13.58 [facility] [id number] [id number] 2020-10-25 2020-10-25 Appointmen EMELIA, UTP Rheumatolog [id number] [place] 11:30:00 11:30:00 t; EMELIA ECHO1 y Phy sici ECHO1 [facility] 2020-10-25 2020-10-25 Appointmen EMELIA, PFT UTP UTP [id number] UT 10:30:00 10:30:00 t; EMELIA Phy sici PFT [facility] 2020-10-25 2020-10-25 Appointmen GAGAN, MARGUERITE Rheumatolog [id number] [place] 09:30:00 09:30:00 t; BRENDA FARAH y Phy sici MAUREEN, M.D. ans M.D. 2019-10-27 2019-10-27 Appointmen GAGAN, MARGUERITE Rheumatolog [id number] [place] 14:30:00 14:30:00 t; BRENDA FARAH y Phy Keshia Higuera M.D. 2019-10-27 2019-10-27 Appointmen EMELIA, UTP Non-Invasiv [id number] [place] 13:30:00 13:30:00 t; EMELIA ROMERO1 e - [place] [facility]ys[facility] ECHO1 [facility] 2019-10-27 2019-10-27 Appointmen EMELIA, PFT UTP UTP [id number] [place] 11:00:00 11:00:00 t; EMELIA Phy sici PFT [facility] 2019-04-14 2019-04-14 AppointMARGUERITE Mejia Rheumatolog [id number] [place] 09:00:00 09:00:00 t; BRENDA FARAH y PhKeshia Bess M.D. 2018-10-07 2018-10-07 AppointMARGUERITE Mejia Rheumatolog [id number] [place] 08:30:00 08:30:00 t; BRENDA FARAH y Phy sici MAUREEN, M.D. ans M.D. 2018-03-04 2018-03-04 Appointmen GAGAN, [facility] Rheumatolog [id number] [place] 10:00:00 10:00:00 t; BRENDA FARAH y Keshia Glass M.D. 2017-08-13 2017-08-13 Appointdarlyn MARGUERITE FARAH UTP [id number] [place] 10:30:00 10:30:00 t; BRENDA FARAH Phy sici MAUREEN, M.D. ans M.D. 2017-08-13 2017-08-13 Appointdarlyn SQUIRESWayne [facility] UTP [id number] [place] 09:30:00 09:30:00 t; EMELIA, ECHO1 Phy sici ECHO1 ans 2017-01-29 2017-01-29 Appointdarlyn MARGUERITE FARAH UTP [id number] UT 10:30:00 10:30:00 t; BRENDA FARAH Phy sici MAUREEN, M.D. ans M.D. 2016-07-17 2016-07-17 Appointdarlyn MARGUERITE FARAH UTP [id number] [place] 10:30:00 10:30:00 t; BRENDA FARAH Phy sici MAUREEN, M.D. ans M.D. Results Test Description Test Time Test Comments Results Result Comments Source Comprehensive metabolic panel 2022-05-16 12:00:00 Test Item Value Reference Range Interpretation Comme nts GLUCOSE (test code = 92 mg/dL 65-99 ? Fasting 2345-7) reference inter radha UREA NITROGEN (BUN) 23 mg/dL 7-25 (test code = 3094-0) CREATININE (test code 0.8 mg/dL 0.5-0.99 For pa tients >49 years of = 2160-0) age, the refere nce limitfor Creati nine is approximately 1 3% higher for peopleident ified as -Louisa n. eGFR NON- See_Comment [Automated message] The [employer] (test code = system which generated 07181-7) this result tra nsmitted reference range : > OR = 60 mL/min/1.73m2. The reference range was not used to interpr et this result as yee l/abnormal. eGFR See_Comment [Auto mated message] The (test code = 72846-6) system which generated this result tra nsmitted reference range : > OR = 60 mL/min/1.73m2. The reference range was not used to interpr et this result as yee l/abnormal. BUN/CREATININE RATIO NOT APPLICABLE See_Comment [Aut omated message] The (test code = 3097-3) system which generated this result tra nsmitted reference range : 6 - 22 (calc). The ref erence range was not u sed to interpret this result as normal/abnormal . SODIUM (test code = 145 mmol/L 563-849 6522-2) POTASSIUM (test code = 4.4 mmol/L 3.5-5.3 2823-3) CHLORIDE (test code = 110 mmol/L 98-110 2075-0) CARBON DIOXIDE (test 27 mmol/L 20-32 code = 2027-9) CALCIUM (test code = 9.5 mg/dL 8.6-10.4 17815-3) PROTEIN, TOTAL (test 7.1 g/dL 6.1-8.1 code = 2885-2) ALBUMIN (test code = 3.9 g/dL 3.6-5.1 1751-7) GLOBULIN (test code = See_Comment [Auto mated message] The 42425-5) system which ge nerated this result tra nsmitted reference range : 1.9 - 3.7 g/dL (calc). Th e reference range was not u sed to interpret this result as normal/abnormal . ALBUMIN/GLOBULIN RATIO See_Comment [Aut omated message] The (test code = 1759-0) system which generated this result tra nsmitted reference range : 1.0 - 2.5 (calc). The ref erence range was not u sed to interpret this result as normal/abnormal . BILIRUBIN, TOTAL (test 0.2 mg/dL 0.2-1.2 code = 1974-2) ALKALINE PHOSPHATASE 45 U/L 37-153 (test code = 6768-6) AST (test code = 20 U/L 10-35 1920-8) ALT (test code = 15 U/L -1741-6) RAC (test code = RAC) Performing Organization Information: ? ?Site ID: [id number] ? ?Name: [facility] ? ?Address: [address] [place] [id number] ? ?Director: TOÑO SOSA MD [facility] and [id number] 12:00:00 Test Item Value Reference Range Interpretation Comments WHITE BLOOD CELL See_Comment L [Automated COUNT (test code = message] The 6690-2) system which generated this result transmitted reference range : 3.8 - 10.8 Thousand/uL. Th e reference range was not used to interpret this result as normal/abnormal . RED BLOOD CELL COUNT See_Comment [Autom ated (test code = 789-8) message] The system which generated this result transmitted reference range : 3.80 - 5.10 Million/uL. The reference range was not used to interpret this result as normal/abnormal . HEMOGLOBIN (test 11.7 g/dL 11.7-15.5 code = 718-7) HEMATOCRIT (test 37 % 35-45 code = 4544-3) MCV (test code = 91.1 fL 80-100 787-2) MCH (test code = 28.8 pg 27-33 785-6) MCHC (test code = 31.6 g/dL 32-36 L 786-4) RDW (test code = 12 % 11-15 788-0) PLATELET COUNT (test See_Comment [Autom ated code = 777-3) message] The system which generated this result transmitted reference range : 140 - 400 Thousand/uL. Th e reference range was not used to interpret this result as normal/abnormal . MPV (test code = 10.7 fL 7.5-12.5 776-5) ABSOLUTE NEUTROPHILS See_Comment [Autom ated (test code = 751-8) message] The system which generated this result transmitted reference range : 1500 - 7800 cells/uL. The reference range was not used to interpret this result as normal/abnormal . ABSOLUTE LYMPHOCYTES See_Comment [Autom ated (test code = 731-0) message] The system which generated this result transmitted reference range : 850 - 3900 cells/uL. The reference range was not used to interpret this result as normal/abnormal . ABSOLUTE MONOCYTES See_Comment [Automat ed (test code = 742-7) message] The system which generated this result transmitted reference range : 200 - 950 cells/uL. The reference range was not used to interpret this result as normal/abnormal . ABSOLUTE EOSINOPHILS See_Comment [Autom ated (test code = 711-2) message] The system which generated this result transmitted reference range : 15 - 500 cells/uL. The reference range was not used to interpret this result as normal/abnormal . ABSOLUTE BASOPHILS See_Comment [Automat ed (test code = 704-7) message] The system which generated this result transmitted reference range : 0 - 200 cells/u L. The reference range was not used to interpr et this result as normal/abnormal . NEUTROPHILS (test 51.7 % code = 770-8) LYMPHOCYTES (test 36 % code = 736-9) MONOCYTES (test code 10.1 % = 5905-5) EOSINOPHILS (test 1.3 % code = 713-8) BASOPHILS (test code 0.9 % = 706-2) RAC (test code = Performing RAC) Organization Information: ? ?Site ID: [facility]GA ? ?Name: [facility] ? ?Address: [address] [place] [phone] ? ?Director: TOÑO SOSA MD Lab Interpretation Abnormal (test code = 14577-2) [facility][QL] CBC (INCLUDES DIFF/PLT)2020-10-25 00:00:00 Test Item Value Reference Range Interpretation Comments WHITE BLOOD CELL COUNT 4.0 {Thousand/u} 3.8-10.8 N (test code = WHITE BLOOD CELL COUNT) RED BLOOD CELL COUNT (test 4.04 {Million/uL} 3.80-5.10 N code = RED BLOOD CELL COUNT) HEMOGLOBIN; Normal (test 11.8 g/dl 11.7-15.5 N code = 50299-0) HEMATOCRIT; Normal (test 37.1 % 35.0-45.0 N code = 4544-3) MCV; Normal (test code = 91.8 fL 80.0-100.0 N 787-2) MCHC; Below Low Threshold 31.8 g/dl 32.0-36.0 N (test code = 33808-8) RDW; Normal (test code = 12.1 % 11.0-15.0 N 788-0) PLATELET COUNT; Normal 268 {Thousand/u} 140-400 N (test code = 777-3) MPV; Normal (test code = 10.2 fL 7.5-12.5 N 72796-3) ABSOLUTE NEUTROPHILS (test 2220 {cells/uL} 7443-3024 N code = ABSOLUTE NEUTROPHILS) ABSOLUTE LYMPHOCYTES (test 1384 {cells/uL} 850-3900 N code = ABSOLUTE LYMPHOCYTES) ABSOLUTE MONOCYTES (test 312 {cells/uL} 200-950 N code = ABSOLUTE MONOCYTES) ABSOLUTE EOSINOPHILS (test 52 {cells/uL} 15-500 N code = ABSOLUTE EOSINOPHILS) ABSOLUTE BASOPHILS (test 32 {cells/uL} 0-200 N code = ABSOLUTE BASOPHILS) NEUTROPHILS (test code = 55.5 % N NEUTROPHILS) LYMPHOCYTES (test code = 34.6 % N LYMPHOCYTES) MONOCYTES; Normal (test 7.8 % N code = 19633-6) EOSINOPHILS; Normal (test 1.3 % N code = 80270-8) BASOPHILS; Normal (test 0.8 % N code = 40694-5) [facility][QL] CMP [id number] 15:26:00 Test Item Value Reference Range Interpretation Comments GLUCOSE; Normal 89 mg/dl 65-139 N Non-fasting reference (test code = interval 1547-9) UREA NITROGEN 23 mg/dl 7-25 N (BUN) (test code = UREA NITROGEN (BUN)) CREATININE (test 0.80 mg/dl 0.50-1.05 N For patient s >49 years code = of age, the ref erence CREATININE) limitfor Creati nine is approximately 1 3% higher for peopleidentifie d as -Louisa n. eGFR NON- 81 {ML/MIN/1.7} > OR = 60 N [place] (test code = eGFR NON-) eGFR 94 {ML/MIN/1.7} > OR = 60 N [place] (test code = eGFR ) BUN/CREATININE NOT APPLICABLE 6-22 RATIO (test code = BUN/CREATININE RATIO) SODIUM (test code 142 mmol/L 135-146 N = SODIUM) POTASSIUM (test 4.2 mmol/L 3.5-5.3 N code = POTASSIUM) CHLORIDE (test 108 mmol/L 98-110 N code = CHLORIDE) CARBON DIOXIDE 29 mmol/L 20-32 N (test code = CARBON DIOXIDE) CALCIUM (test 9.3 mg/dl 8.6-10.4 N code = CALCIUM) PROTEIN, TOTAL 6.8 g/dl 6.1-8.1 N (test code = PROTEIN, TOTAL) ALBUMIN (test 3.8 g/dl 3.6-5.1 N code = ALBUMIN) GLOBULIN (test 3.0 {G/DL CALC} 1.9-3.7 N code = GLOBULIN) ALBUMIN/GLOBULIN 1.3 {CALC} 1.0-2.5 N RATIO (test code = ALBUMIN/GLOBULIN RATIO) BILIRUBIN, TOTAL; 0.3 mg/dl 0.2-1.2 N Normal (test code = 54808-3) ALKALINE 52 u/l 37-153 N PHSPHATASE (test code = ALKALINE PHSPHATASE) AST; Normal (test 23 u/l 10-35 N code = 1916-6) ALT; Normal (test 17 u/l 6-29 N code = 1742-6) [facility][QL] CBC (INCLUDES DIFF/PLT)2020-04-12 15:26:00 Test Item Value Reference Range Interpretation Comments WHITE BLOOD CELL COUNT 3.9 {Thousand/u} 3.8-10.8 N (test code = WHITE BLOOD CELL COUNT) RED BLOOD CELL COUNT (test 3.86 {Million/uL} 3.80-5.10 N code = RED BLOOD CELL COUNT) HEMAGLOBIN; Below Low 11.6 g/dl 11.7-15.5 Threshold (test code = 40868-8) HEMATOCRIT; Normal (test 35.7 % 35.0-45.0 N code = 4544-3) MCV; Normal (test code = 92.5 fL 80.0-100.0 N 787-2) MCHC; Normal (test code = 32.5 g/dl 32.0-36.0 N 04535-5) RDW; Normal (test code = 12.0 % 11.0-15.0 N 788-0) PLATELET COUNT; Normal 217 {Thousand/u} 140-400 N (test code = 777-3) MPV; Normal (test code = 10.8 fL 7.5-12.5 N 02065-0) ABSOLUTE NEUTROPHILS (test 2055 {cells/uL} 8720-0996 N code = ABSOLUTE NEUTROPHILS) ABSOLUTE LYMPHOCYTES (test 1318 {cells/uL} 850-3900 N code = ABSOLUTE LYMPHOCYTES) ABSOLUTE MONOCYTES (test 367 {cells/uL} 200-950 N code = ABSOLUTE MONOCYTES) ABSOLUTE EOSINOPHILS (test 140 {cells/uL} 15-500 N code = ABSOLUTE EOSINOPHILS) ABSOLUTE BASOPHILS (test 20 {cells/uL} 0-200 N code = ABSOLUTE BASOPHILS) NEUTROPHILS (test code = 52.7 % N NEUTROPHILS) LYMPHOCYTES (test code = 33.8 % N LYMPHOCYTES) MONOCYTES; Normal (test 9.4 % N code = 23823-5) EOSINOPHILS; Normal (test 3.6 % N code = 78630-6) BASOPHILS; Normal (test 0.5 % N code = 76272-3) [facility]] CMP [id number] 16:19:00 Test Item Value Reference Range Interpretation Comments GLUCOSE; Normal 83 mg/dl 65-139 N Non-fasting reference (test code = interval 1547-9) UREA NITROGEN 25 mg/dl 7-25 N (BUN) (test code = UREA NITROGEN (BUN)) CREATININE (test 0.81 mg/dl 0.50-1.05 N For patient s >49 years code = of age, the ref erence CREATININE) limitfor Creati nine is approximately 1 3% higher for peopleidentifie d as -Louisa n. eGFR NON- 80 {ML/MIN/1.7} > OR = 60 N [place] (test code = eGFR NON-) eGFR 93 {ML/MIN/1.7} > OR = 60 N [place] (test code = eGFR ) BUN/CREATININE NOT APPLICABLE 6-22 RATIO (test code = BUN/CREATININE RATIO) SODIUM (test code 141 mmol/L 135-146 N = SODIUM) POTASSIUM (test 4.5 mmol/L 3.5-5.3 N code = POTASSIUM) CHLORIDE (test 107 mmol/L 98-110 N code = CHLORIDE) CARBON DIOXIDE 25 mmol/L 20-32 N (test code = CARBON DIOXIDE) CALCIUM (test 9.8 mg/dl 8.6-10.4 N code = CALCIUM) PROTEIN, TOTAL 7.0 g/dl 6.1-8.1 N (test code = PROTEIN, TOTAL) ALBUMIN (test 4.0 g/dl 3.6-5.1 N code = ALBUMIN) GLOBULIN (test 3.0 {G/DL CALC} 1.9-3.7 N code = GLOBULIN) ALBUMIN/GLOBULIN 1.3 {CALC} 1.0-2.5 N RATIO (test code = ALBUMIN/GLOBULIN RATIO) BILIRUBIN, TOTAL; 0.3 mg/dl 0.2-1.2 N Normal (test code = 66129-0) ALKALINE 44 u/l 33-130 N PHSPHATASE (test code = ALKALINE PHSPHATASE) AST; Normal (test 18 u/l 10-35 N code = 1916-6) ALT; Normal (test 14 u/l 6-29 N code = 1742-6) [facility]] CBC (INCLUDES DIFF/PLT)2019-10-30 16:19:00 Test Item Value Reference Range Interpretation Comments WHITE BLOOD CELL COUNT 3.8 {Thousand/u} 3.8-10.8 N (test code = WHITE BLOOD CELL COUNT) RED BLOOD CELL COUNT (test 3.66 {Million/uL} 3.80-5.10 code = RED BLOOD CELL COUNT) HEMAGLOBIN; Below Low 10.7 g/dl 11.7-15.5 Threshold (test code = 80070-2) HEMATOCRIT; Below Low 33.8 % 35.0-45.0 Threshold (test code = 4544-3) MCV; Normal (test code = 92.3 fL 80.0-100.0 N 787-2) MCHC; Below Low Threshold 31.7 g/dl 32.0-36.0 N (test code = 54158-0) RDW; Normal (test code = 12.6 % 11.0-15.0 N 788-0) PLATELET COUNT; Normal 244 {Thousand/u} 140-400 N (test code = 777-3) MPV; Normal (test code = 10.4 fL 7.5-12.5 N 20961-7) ABSOLUTE NEUTROPHILS (test 1873 {cells/uL} 7402-0607 N code = ABSOLUTE NEUTROPHILS) ABSOLUTE LYMPHOCYTES (test 1455 {cells/uL} 850-3900 N code = ABSOLUTE LYMPHOCYTES) ABSOLUTE MONOCYTES (test 361 {cells/uL} 200-950 N code = ABSOLUTE MONOCYTES) ABSOLUTE EOSINOPHILS (test 80 {cells/uL} 15-500 N code = ABSOLUTE EOSINOPHILS) ABSOLUTE BASOPHILS (test 30 {cells/uL} 0-200 N code = ABSOLUTE BASOPHILS) NEUTROPHILS (test code = 49.3 % N NEUTROPHILS) LYMPHOCYTES (test code = 38.3 % N LYMPHOCYTES) MONOCYTES; Normal (test 9.5 % N code = 42717-0) EOSINOPHILS; Normal (test 2.1 % N code = 02370-1) BASOPHILS; Normal (test 0.8 % N code = 86309-0) [facility] [id number] 08:01:00 Test Item Value Reference Range Interpretation Comments CULTURE (BEAKER) (test No growth in 5 days code = 1095) BLOOD [id number] 08:01:00 Test Item Value Reference Range Interpretation Comments CULTURE (BEAKER) (test No growth in 5 days code = 1095) BODY FLUID CULTURE + GRAM [id number] 15:30:00 Test Item Value Reference Range Interpretation Comments CULTURE (BEAKER) (test No growth code = 1095) GRAM STAIN RESULT <1+ White blood cells (BEAKER) (test code = seen 1123) GRAM STAIN RESULT No organisms seen (BEAKER) (test code = 16370) RAD, CHEST, 1 VIEW, NON [id number] 14:21:00Reason for exam:->PICC LINE PLACEMENTShould this be performed at the bedside?->YesFINAL REPORT TECHNIQUE: Frontal chest radiograph dated 09/01/2019. CLINICAL HIST ORY: PICC placement COMPARISON STUDY: Chest radiograph dated 08/29/2019 IMPRESSION:Right-sided PICC is seen with the tip projected over the superior vena cava near the cavoatrial junction. Bandlike atelectasis is seen in the right lower lobe. Atelectasis is also seen in the left lung base, stable. No p leural effusion or pneumothorax. Cardiomediastinal silhouette is normal in size. No pulmonary edema.No fracture. Signed: Delta Ray MDReport Verified Date/Time: 09/01/2019 14:21:05 Reading Location: [facility] Reading Room OMYCIN LEVEL, [id number] 20:46:00 Test Item Value Reference Range Interpretation Comments VANCOMYCIN TROUGH (BEAKER) (test 9.1 ug/mL 10.0-20.0 L code = 522) Draw immediately prior to next vancomycin dose.MENINGITIS/ENCEPHALITIS PANEL 2019-08-31 17:01:00 Test Item Value Reference Range Interpretation Comments ESCHERICHIA COLI K1 (test code = Not detected Not detected 20160818) HAEMOPHILUS INFLUENZAE (test Not detected Not detected code = 20160819) LISTERIA MONOCYTOGENES (test Not detected Not detected code = 4991290) NEISSERIA MENINGITIDIS (test Not detected Not detected code = 2075329) STREPTOCOCCUS AGALACTIAE (test Not detected Not detected code = 4137575) STREPTOCOCCUS PNEUMONIAE (test Not detected Not detected code = 2474723) CYTOMEGALOVIRUS (CMV) (test code Not detected Not detected = 20160824) ENTEROVIRUS (test code = Not detected Not detected 1580644) HUMAN HERPESVIRUS 6 (HHV-6) Not detected Not detected (test code = 3139235) HERPES SIMPLEX VIRUS 1(HSV-1) Not detected Not detected (test code = 9819458) HERPES SIMPLEX VIRUS 2(HSV-2) Not detected Not detected (test code = 9997544) HUMAN PARECHOVIRUS (test code = Not detected Not detected 7383818) VARICELLA-ZOSTER VIRUS (VZV) Not detected Not detected (test code = 6921106) CRYPTOCOCCUS NEOFORMANS/GATTII Not detected Not detected (test code = 0506449) The performance of this test has not been specifically evaluated for CSF specimens from immunocompromised individuals. The effect of antibiotic treatment on test performance has not been evaluated. Other viruses and bacteria not targeted by this PCR panel cannot be excluded; therefore, clinical correlation and follow up of serology, culture results, and other molecular studies may be required. This sample was tested at the [facility] Molecular Diagnostics Laboratory using the [employer] FilmArray MeningitisEncephalitis Panel. It is FDA cleared and has been verified and approved by the [facility] Molecular Diagnostics Laboratory for clinical use. This laboratory is CLIA-certified and [employer] ([employer])-accredited to perform high complexity testing.[id number] 06:56:00 Test Item Value Reference Range Interpretation Comments PHOSPHORUS (BEAKER) (test code = 4.2 mg/dL 2.3-4.7 604) [id number] 06:56:00 Test Item Value Reference Range Interpretation Comments MAGNESIUM (BEAKER) (test code = 2.3 mg/dL 1.6-2.6 627) BASIC METABOLIC [id number] 06:56:00 Test Item Value Reference Range Interpretation Comments SODIUM (BEAKER) 138 meq/L 136-145 (test code = 381) POTASSIUM (BEAKER) 4.2 meq/L 3.5-5.1 (test code = 379) CHLORIDE (BEAKER) 108 meq/L 98-107 H (test code = 382) CO2 (BEAKER) (test 24 meq/L 22-29 code = 355) BLOOD UREA NITROGEN 16 mg/dL 7-21 (BEAKER) (test code = 354) CREATININE (BEAKER) 0.69 mg/dL 0.57-1.25 (test code = 358) GLUCOSE RANDOM 132 mg/dL 70-105 H (BEAKER) (test code = 652) CALCIUM (BEAKER) 8.8 mg/dL 8.4-10.2 (test code = 697) EGFR (BEAKER) (test 87 mL/min/1.73 ESTIMA BETTINA GFR IS code = 1092) sq m NOT ACCURATE CREATININE CLEARANCE IN PREDICTING GLOMERULAR FILTRATION RATE . ESTIMATED GFR I S NOT APPLICABLE FOR DIALYSIS PATIEN TS. [id number] 07:02:00 Test Item Value Reference Range Interpretation Comments MAGNESIUM (BEAKER) 2.3 mg/dL 1.6-2.6 Specimen slightly (test code = 627) hemolyzed [id number] 07:02:00 Test Item Value Reference Range Interpretation Comments PHOSPHORUS (BEAKER) 2.5 mg/dL 2.3-4.7 Specimen slightly (test code = 604) hemolyzed BASIC METABOLIC [id number] 07:02:00 Test Item Value Reference Range Interpretation Comments SODIUM (BEAKER) 136 meq/L 136-145 (test code = 381) POTASSIUM (BEAKER) 3.9 meq/L 3.5-5.1 Specimen slightly (test code = 379) hemolyzed CHLORIDE (BEAKER) 106 meq/L 98-107 (test code = 382) CO2 (BEAKER) (test 24 meq/L 22-29 code = 355) BLOOD UREA NITROGEN 16 mg/dL 7-21 (BEAKER) (test code = 354) CREATININE (BEAKER) 0.66 mg/dL 0.57-1.25 Specimen slightly (test code = 358) hemolyzed GLUCOSE RANDOM 87 mg/dL 70-105 (BEAKER) (test code = 652) CALCIUM (BEAKER) 8.4 mg/dL 8.4-10.2 (test code = 697) EGFR (BEAKER) (test 92 mL/min/1.73 ESTIMA BETTINA GFR IS code = 1092) sq m NOT ACCURATE CREATININE CLEARANCE IN PREDICTING GLOMERULAR FILTRATION RATE . ESTIMATED GFR I S NOT APPLICABLE FOR DIALYSIS PATIEN TS. URINALYSIS W/ REFLEX URINE [id number] 13:07:00 Test Item Value Reference Range Interpretation Comments COLOR (BEAKER) (test code = 470) Yellow CLARITY (BEAKER) (test code = 469) Hazy SPECIFIC GRAVITY UA (BEAKER) (test 1.021 1.001-1.035 code = 468) PH UA (BEAKER) (test code = 467) 6.5 5.0-8.0 PROTEIN UA (BEAKER) (test code = 10 mg/dL Negative A 464) GLUCOSE UA (BEAKER) (test code = Negative Negative 365) KETONES UA (BEAKER) (test code = Negative Negative 371) BILIRUBIN UA (BEAKER) (test code = Negative Negative 462) BLOOD UA (BEAKER) (test code = 461) Negative Negative NITRITE UA (BEAKER) (test code = Negative Negative 465) LEUKOCYTE ESTERASE UA (BEAKER) Large Negative A (test code = 466) UROBILINOGEN UA (BEAKER) (test code 0.2 mg/dL 0.2-1.0 = 463) RBC UA (BEAKER) (test code = 519) 1 /HPF WBC UA (BEAKER) (test code = 520) 131 /HPF MUCUS (BEAKER) (test code = 1574) Rare SQUAMOUS EPITHELIAL (BEAKER) (test 8 /HPF code = 516) SOURCE(BEAKER) (test code = 2795) CBC W/PLT COUNT & AUTO [id number] 02:11:00 Test Item Value Reference Range Interpretation Comments WHITE BLOOD CELL COUNT (BEAKER) 5.5 K/ L 3.5-10.5 (test code = 775) RED BLOOD CELL COUNT (BEAKER) 3.75 M/ L 3.93-5.22 L (test code = 761) HEMOGLOBIN (BEAKER) (test code = 11.2 GM/DL 11.2-15.7 410) HEMATOCRIT (BEAKER) (test code = 34.4 % 34.1-44.9 411) MEAN CORPUSCULAR VOLUME (BEAKER) 91.7 fL 79.4-94.8 (test code = 753) MEAN CORPUSCULAR HEMOGLOBIN 29.9 pg 25.6-32.2 (BEAKER) (test code = 751) MEAN CORPUSCULAR HEMOGLOBIN CONC 32.6 GM/DL 32.2-35.5 (BEAKER) (test code = 752) RED CELL DISTRIBUTION WIDTH 12.6 % 11.7-14.4 (BEAKER) (test code = 412) PLATELET COUNT (BEAKER) (test 347 K/CU MM 150-450 code = 756) MEAN PLATELET VOLUME (BEAKER) 9.7 fL 9.4-12.3 (test code = 754) NUCLEATED RED BLOOD CELLS 0 /100 WBC 0-0 (BEAKER) (test code = 413) (CELLAVISION MANUAL DIFF)2019-08-29 02:11:00 Test Item Value Reference Range Interpretation Comments NEUTROPHILS - REL 68 % (CELLAVISION)(BEAKER) (test code = 2816) LYMPHOCYTES - REL 20 % (CELLAVISION)(BEAKER) (test code = 2817) MONOCYTES - REL 9 % (CELLAVISION)(BEAKER) (test code = 2818) EOSINOPHILS - REL 1 % (CELLAVISION)(BEAKER) (test code = 2819) BASOPHILS - REL 2 % (CELLAVISION)(BEAKER) (test code = 2820) NEUTROPHILS - ABS 3.74 K/ul 1.56-6.13 (CELLAVISION)(BEAKER) (test code = 2830) LYMPHOCYTES - ABS 1.10 K/ul 1.18-3.74 L (CELLAVISION)(BEAKER) (test code = 2831) MONOCYTES - ABS 0.50 K/uL 0.24-0.36 H (CELLAVISION)(BEAKER) (test code = 2832) EOSINOPHILS - ABS 0.06 K/uL 0.04-0.36 (CELLAVISION)(BEAKER) (test code = 2834) BASOPHILS - ABS 0.11 K/uL 0.01-0.08 H (CELLAVISION)(BEAKER) (test code = 2835) TOTAL COUNTED (BEAKER) (test code 100 = 1351) MANUAL NRBC PER 100 CELLS (BEAKER) 1 /100 WBC 0-0 H (test code = 1353) RBC MORPHOLOGY (BEAKER) (test code Normal = 762) SMUDGE CELLS (BEAKER) (test code = Present 1371) GIANT PLATELETS (BEAKER) (test Present code = 313) ARTIFACT (CELLAVISION)(BEAKER) Present (test code = 3432) PLATELET CONCENTRATION Adequate (CELLAVISION)(BEAKER) (test code = 3438) Received comment: User comments: Slide comments:RAD, CHEST, 1 VIEW, NON DEPT 2019-08-29 02:05:00Reason for exam:->coughShould this be performed at the bedside?->YesFINAL REPORT Chest, 1 view. History: Cough Comparison: None available. IMPRESSION:Coarse reticular airspace opacities bilaterally with more confluent patchy heterogeneous opacitiesin the bilateral bases, left greater than right. Findings are nonspecific however atypical infectioncan have this appearance the proper clinical setting. No large pleural effusion or pneumothorax. Cardiomediastinal silhouette within normal limits. Osseous structures are grossly unremarkable. Signed: Angel Jacob Verified Date/Time: 08/29/2019 02:05:36 [id number] 01:49:00 Test Item Value Reference Range Interpretation Comments PHOSPHORUS (BEAKER) (test code = 2.1 mg/dL 2.3-4.7 L 604) [id number] 01:49:00 Test Item Value Reference Range Interpretation Comments MAGNESIUM (BEAKER) (test code = 2.3 mg/dL 1.6-2.6 627) COMPREHENSIVE METABOLIC [id number] 01:49:00 Test Item Value Reference Range Interpretation Comments TOTAL PROTEIN 7.1 gm/dL 6.0-8.3 (BEAKER) (test code = 770) ALBUMIN (BEAKER) 3.4 g/dL 3.5-5.0 L (test code = 1145) ALKALINE PHOSPHATASE 52 U/L 40-150 (BEAKER) (test code = 346) BILIRUBIN TOTAL 0.2 mg/dL 0.2-1.2 (BEAKER) (test code = 377) SODIUM (BEAKER) (test 138 meq/L 136-145 code = 381) POTASSIUM (BEAKER) 3.8 meq/L 3.5-5.1 (test code = 379) CHLORIDE (BEAKER) 107 meq/L 98-107 (test code = 382) CO2 (BEAKER) (test 23 meq/L 22-29 code = 355) BLOOD UREA NITROGEN 15 mg/dL 7-21 (BEAKER) (test code = 354) CREATININE (BEAKER) 0.75 mg/dL 0.57-1.25 (test code = 358) GLUCOSE RANDOM 118 mg/dL 70-105 H (BEAKER) (test code = 652) CALCIUM (BEAKER) 8.8 mg/dL 8.4-10.2 (test code = 697) AST (SGOT) (BEAKER) 12 U/L 5-34 (test code = 353) ALT (SGPT) (BEAKER) 8 U/L 6-55 (test code = 347) EGFR (BEAKER) (test 79 mL/min/1.73 ESTIMA BETTINA GFR IS code = 1092) sq m NOT ACCURATE CREATININE CLEARANCE IN PREDICTING GLOMERULAR FILTRATION RATE . ESTIMATED GFR I S NOT APPLICABLE FOR DIALYSIS PATIEN TS. [QL] HEMOGLOBIN [id number] 09:00:00 Test Item Value Reference Range Interpretation Comments HEMOGLOBIN A1c; 5.1 {% of <5.7 N For the purp ose of Normal (test code total} screening for the = 4548-4) presence ofdiab etes: <5.7% Consisten t with the absence of diabetes5.7-6.4 % Consistent with increased risk for diabetes (predi abetes)> or =6.5% Consis tent with diabetes T his assay result is consistent with a decreased risko f diabetes. Curre ntly, no consensus exist s regarding use ofhemoglobin A1 c for diagnosis of di abetes in children. Ac cording to [place] [employer] (ADA)guidelines , hemoglobin A1c <7.0% represents optimalcontrol in non- di abetic patients. Differentmetric s may apply to specif ic patient populat ions. Standards of Me dical Care in Diabete s(ADA). [facility][QL] TSH, 3RD [id number] 09:00:00 Test Item Value Reference Range Interpretation Comments TSH; Normal (test code = 0.56 {MIU/L} 0.40-4.50 N 96129-1) [facility]] CBC (INCLUDES DIFF/PLT)2019-08-27 09:00:00 Test Item Value Reference Range Interpretation Comments WHITE BLOOD CELL 6.3 3.8-10.8 N COUNT (test code = {Thousand/u} WHITE BLOOD CELL COUNT) RED BLOOD CELL 3.92 3.80-5.10 N COUNT (test code = {Million/uL} RED BLOOD CELL COUNT) HEMAGLOBIN; Below 11.4 g/dl 11.7-15.5 Low Threshold (test code = 28918-3) HEMATOCRIT; Normal 35.7 % 35.0-45.0 N (test code = 4544-3) MCV; Normal (test 91.1 fL 80.0-100.0 N code = 787-2) MCHC; Below Low 31.9 g/dl 32.0-36.0 N Threshold (test code = 95523-0) RDW; Normal (test 12.5 % 11.0-15.0 N code = 788-0) PLATELET COUNT; 328 140-400 N Normal (test code {Thousand/u} = 777-3) MPV; Normal (test 10.0 fL 7.5-12.5 N code = 84981-5) ABSOLUTE 4057 4864-8388 N NEUTROPHILS (test {cells/uL} code = ABSOLUTE NEUTROPHILS) ABSOLUTE 8149 027-0873 N LYMPHOCYTES (test {cells/uL} code = ABSOLUTE LYMPHOCYTES) ABSOLUTE MONOCYTES 428 {cells/uL} 200-950 N (test code = ABSOLUTE MONOCYTES) ABSOLUTE 13 {cells/uL} 15-500 EOSINOPHILS (test code = ABSOLUTE EOSINOPHILS) ABSOLUTE BASOPHILS 19 {cells/uL} 0-200 N (test code = ABSOLUTE BASOPHILS) NEUTROPHILS (test 64.4 % N code = NEUTROPHILS) LYMPHOCYTES (test 28.3 % N code = LYMPHOCYTES) MONOCYTES; Normal 6.8 % N (test code = 82288-5) EOSINOPHILS; 0.2 % N Normal (test code = 51020-9) BASOPHILS; Normal 0.3 % N (test code = 21254-0) COMMENT(S) (test See Comment Review of p eripheral code = COMMENT(S)) smear con firmsautomated results. [facility]] CMP [id number] 09:00:00 Test Item Value Reference Range Interpretation Comments GLUCOSE; Normal 86 mg/dl 65-99 N Fasting refe rence (test code = interval 1547-9) UREA NITROGEN 21 mg/dl 7-25 N (BUN) (test code = UREA NITROGEN (BUN)) CREATININE (test 0.67 mg/dl 0.50-1.05 N For patient s >49 years code = of age, the ref erence CREATININE) limitfor Creati nine is approximately 1 3% higher for peopleidentifie d as -Louisa n. eGFR NON- 97 {ML/MIN/1.7} > OR = 60 N [place] (test code = eGFR NON-) eGFR 112 {ML/MIN/1.7} > OR = 60 N [place] (test code = eGFR ) BUN/CREATININE NOT APPLICABLE 6-22 RATIO (test code = BUN/CREATININE RATIO) SODIUM (test code 142 mmol/L 135-146 N = SODIUM) POTASSIUM (test 4.4 mmol/L 3.5-5.3 N code = POTASSIUM) CHLORIDE (test 106 mmol/L 98-110 N code = CHLORIDE) CARBON DIOXIDE 29 mmol/L 20-32 N (test code = CARBON DIOXIDE) CALCIUM (test 9.7 mg/dl 8.6-10.4 N code = CALCIUM) PROTEIN, TOTAL 7.6 g/dl 6.1-8.1 N (test code = PROTEIN, TOTAL) ALBUMIN (test 3.9 g/dl 3.6-5.1 N code = ALBUMIN) GLOBULIN (test 3.7 {G/DL CALC} 1.9-3.7 N code = GLOBULIN) ALBUMIN/GLOBULIN 1.1 {CALC} 1.0-2.5 N RATIO (test code = ALBUMIN/GLOBULIN RATIO) BILIRUBIN, TOTAL; 0.3 mg/dl 0.2-1.2 N Normal (test code = 56517-0) ALKALINE 55 u/l 33-130 N PHSPHATASE (test code = ALKALINE PHSPHATASE) AST; Normal (test 14 u/l 10-35 N code = 1916-6) ALT; Normal (test 10 u/l 6-29 N code = 1742-6) [facility]] LIPID [id number] 09:00:00 Test Item Value Reference Range Interpretation Comments CHOLESTEROL, TOTAL; 164 mg/dl <200 N Normal (test code = 2093-3) HDL CHOLESTEROL; 52 mg/dl >50 N Normal (test code = 2085-9) TRIGLYCERIDES; 73 mg/dl <150 N Normal (test code = 2571-8) LDL-CHOLESTEROL; 96 {MG/DL DOE} N Reference range: Normal (test code = <100 William irable range 85266-5) <100 mg/dL for primary prevent ion; <70 mg/dL for patients with C HD or diabetic patien ts with > or = 2 C HD risk factors. L DL-C is now calculat ed using the Vidya calculation, wh ich is a validated novel method providin g better accuracy than the Friedewald equation in the estimation of L DL-C. Ady BOYD et al . ODIN. 2013;310( 19): 6755-8773 (http://educati on.Quanlight. [employer]/f aq/HLC771) CHOL/HDLC RATIO 3.2 {CALC} <5.0 N (test code = CHOL/HDLC RATIO) NON HDL CHOLESTEROL 112 {MG/DL <130 N For penny ents with (test code = NON HDL DOE} diabete s plus 1 CHOLESTEROL) major ASCVD ris k factor, treatin g to a non-HDL-C goa l of <100 mg/dL (LDL -C of <70 mg/dL) is considered a therapeutic opt ion. [facility]] CMP [id number] 10:12:00 Test Item Value Reference Range Interpretation Comments GLUCOSE; Normal 85 mg/dl 65-139 N Non-fasting reference (test code = interval 1547-9) UREA NITROGEN 13 mg/dl 7-25 N (BUN) (test code = UREA NITROGEN (BUN)) CREATININE (test 0.63 mg/dl 0.50-1.05 N For patient s >49 years code = of age, the ref erence CREATININE) limitfor Creati nine is approximately 1 3% higher for peopleidentifie d as -Louisa n. eGFR NON- 99 {ML/MIN/1.7} > OR = 60 N [place] (test code = eGFR NON-) eGFR 115 {ML/MIN/1.7} > OR = 60 N [place] (test code = eGFR ) BUN/CREATININE NOT APPLICABLE 6-22 RATIO (test code = BUN/CREATININE RATIO) SODIUM (test code 142 mmol/L 135-146 N = SODIUM) POTASSIUM (test 4.3 mmol/L 3.5-5.3 N code = POTASSIUM) CHLORIDE (test 107 mmol/L 98-110 N code = CHLORIDE) CARBON DIOXIDE 29 mmol/L 20-32 N (test code = CARBON DIOXIDE) CALCIUM (test 9.4 mg/dl 8.6-10.4 N code = CALCIUM) PROTEIN, TOTAL 7.0 g/dl 6.1-8.1 N (test code = PROTEIN, TOTAL) ALBUMIN (test 3.9 g/dl 3.6-5.1 N code = ALBUMIN) GLOBULIN (test 3.1 {G/DL CALC} 1.9-3.7 N code = GLOBULIN) ALBUMIN/GLOBULIN 1.3 {CALC} 1.0-2.5 N RATIO (test code = ALBUMIN/GLOBULIN RATIO) BILIRUBIN, TOTAL; 0.3 mg/dl 0.2-1.2 N Normal (test code = 77702-5) ALKALINE 46 u/l 33-130 N PHSPHATASE (test code = ALKALINE PHSPHATASE) AST; Normal (test 18 u/l 10-35 N code = 1916-6) ALT; Normal (test 11 u/l 6-29 N code = 1742-6) [facility]] CBC (INCLUDES DIFF/PLT)2019-04-14 10:12:00 Test Item Value Reference Range Interpretation Comments WHITE BLOOD CELL COUNT 3.9 {Thousand/u} 3.8-10.8 N (test code = WHITE BLOOD CELL COUNT) RED BLOOD CELL COUNT (test 4.12 {Million/uL} 3.80-5.10 N code = RED BLOOD CELL COUNT) HEMAGLOBIN; Normal (test 12.2 g/dl 11.7-15.5 N code = 82453-4) HEMATOCRIT; Normal (test 37.2 % 35.0-45.0 N code = 4544-3) MCV; Normal (test code = 90.3 fL 80.0-100.0 N 787-2) MCHC; Normal (test code = 32.8 g/dl 32.0-36.0 N 16548-5) RDW; Normal (test code = 12.4 % 11.0-15.0 N 788-0) PLATELET COUNT; Normal 252 {Thousand/u} 140-400 N (test code = 777-3) MPV; Normal (test code = 10.2 fL 7.5-12.5 N 03185-4) ABSOLUTE NEUTROPHILS (test 2200 {cells/uL} 4378-2516 N code = ABSOLUTE NEUTROPHILS) ABSOLUTE LYMPHOCYTES (test 1205 {cells/uL} 850-3900 N code = ABSOLUTE LYMPHOCYTES) ABSOLUTE MONOCYTES (test 343 {cells/uL} 200-950 N code = ABSOLUTE MONOCYTES) ABSOLUTE EOSINOPHILS (test 121 {cells/uL} 15-500 N code = ABSOLUTE EOSINOPHILS) ABSOLUTE BASOPHILS (test 31 {cells/uL} 0-200 N code = ABSOLUTE BASOPHILS) NEUTROPHILS (test code = 56.4 % N NEUTROPHILS) LYMPHOCYTES (test code = 30.9 % N LYMPHOCYTES) MONOCYTES; Normal (test 8.8 % N code = 86758-5) EOSINOPHILS; Normal (test 3.1 % N code = 56068-0) BASOPHILS; Normal (test 0.8 % N code = 54211-1) [facility]] LIPID [id number] 07:56:00 Test Item Value Reference Range Interpretation Comments CHOLESTEROL, TOTAL; 173 mg/dl <200 N Normal (test code = 2093-3) HDL CHOLESTEROL; 73 mg/dl >50 N Normal (test code = 2085-9) TRIGLYCERIDES; 58 mg/dl <150 N Normal (test code = 2571-8) LDL-CHOLESTEROL; 86 {MG/DL DOE} N Reference range: Normal (test code = <100 William irable range 10105-2) <100 mg/dL for primary prevent ion; <70 mg/dL for patients with C HD or diabetic patien ts with > or = 2 C HD risk factors. L DL-C is now calculat ed using the Vidya calculation, wh ich is a validated novel method providin g better accuracy than the Friedewald equation in the estimation of L DL-C. Ady SS et al . ODIN. 2013;310( 19): 7433-6030 (http://educati on.BenchBanking estDiagnSpire Sensibos. com/f aq/ENX685) CHOL/HDLC RATIO 2.4 {CALC} <5.0 N (test code = CHOL/HDLC RATIO) NON HDL CHOLESTEROL 100 {MG/DL <130 N For penny ents with (test code = NON HDL DOE} diabete s plus 1 CHOLESTEROL) major ASCVD ris k factor, treatin g to a non-HDL-C goa l of <100 mg/dL (LDL -C of <70 mg/dL) is considered a therapeutic opt ion. [facility]] CBC (INCLUDES DIFF/PLT)2019-01-22 07:56:00 Test Item Value Reference Range Interpretation Comments WHITE BLOOD CELL COUNT 3.5 {Thousand/u} 3.8-10.8 (test code = WHITE BLOOD CELL COUNT) RED BLOOD CELL COUNT (test 4.09 {Million/uL} 3.80-5.10 N code = RED BLOOD CELL COUNT) HEMAGLOBIN; Normal (test 11.9 g/dl 11.7-15.5 N code = 12606-5) HEMATOCRIT; Normal (test 37.5 % 35.0-45.0 N code = 4544-3) MCV; Normal (test code = 91.7 fL 80.0-100.0 N 787-2) MCHC; Below Low Threshold 31.7 g/dl 32.0-36.0 N (test code = 37459-3) RDW; Normal (test code = 12.8 % 11.0-15.0 N 788-0) PLATELET COUNT; Normal 226 {Thousand/u} 140-400 N (test code = 777-3) MPV; Normal (test code = 10.1 fL 7.5-12.5 N 48225-8) ABSOLUTE NEUTROPHILS (test 1943 {cells/uL} 4711-6784 N code = ABSOLUTE NEUTROPHILS) ABSOLUTE LYMPHOCYTES (test 1043 {cells/uL} 850-3900 N code = ABSOLUTE LYMPHOCYTES) ABSOLUTE MONOCYTES (test 343 {cells/uL} 200-950 N code = ABSOLUTE MONOCYTES) ABSOLUTE EOSINOPHILS (test 140 {cells/uL} 15-500 N code = ABSOLUTE EOSINOPHILS) ABSOLUTE BASOPHILS (test 32 {cells/uL} 0-200 N code = ABSOLUTE BASOPHILS) NEUTROPHILS (test code = 55.5 % N NEUTROPHILS) LYMPHOCYTES (test code = 29.8 % N LYMPHOCYTES) MONOCYTES; Normal (test 9.8 % N code = 85333-1) EOSINOPHILS; Normal (test 4.0 % N code = 78221-2) BASOPHILS; Normal (test 0.9 % N code = 26181-4) [facility]] CMP [id number] 08:27:00 Test Item Value Reference Range Interpretation Comments GLUCOSE; Normal 73 mg/dl 65-99 N Fasting refe rence (test code = interval 1547-9) UREA NITROGEN 23 mg/dl 7-25 N (BUN) (test code = UREA NITROGEN (BUN)) CREATININE (test 0.69 mg/dl 0.50-1.05 N For patient s >49 years code = of age, the ref erence CREATININE) limitfor Creati nine is approximately 1 3% higher for peopleidentifie d as -Louisa n. eGFR NON- 97 {ML/MIN/1.7} > OR = 60 N [place] (test code = eGFR NON-) eGFR 112 {ML/MIN/1.7} > OR = 60 N [place] (test code = eGFR ) BUN/CREATININE NOT APPLICABLE 6-22 RATIO (test code = BUN/CREATININE RATIO) SODIUM (test code 141 mmol/L 135-146 N = SODIUM) POTASSIUM (test 4.1 mmol/L 3.5-5.3 N code = POTASSIUM) CHLORIDE (test 109 mmol/L 98-110 N code = CHLORIDE) CARBON DIOXIDE 24 mmol/L 20-32 N (test code = CARBON DIOXIDE) CALCIUM (test 9.1 mg/dl 8.6-10.4 N code = CALCIUM) PROTEIN, TOTAL 7.1 g/dl 6.1-8.1 N (test code = PROTEIN, TOTAL) ALBUMIN (test 4.1 g/dl 3.6-5.1 N code = ALBUMIN) GLOBULIN (test 3.0 {G/DL CALC} 1.9-3.7 N code = GLOBULIN) ALBUMIN/GLOBULIN 1.4 {CALC} 1.0-2.5 N RATIO (test code = ALBUMIN/GLOBULIN RATIO) BILIRUBIN, TOTAL; 0.5 mg/dl 0.2-1.2 N Normal (test code = 08015-5) ALKALINE 42 u/l 33-130 N PHSPHATASE (test code = ALKALINE PHSPHATASE) AST; Normal (test 15 u/l 10-35 N code = 1916-6) ALT; Normal (test 8 u/l 6-29 N code = 1742-6) [facility]] CBC (INCLUDES DIFF/PLT)2018-12-23 08:27:00 Test Item Value Reference Range Interpretation Comments WHITE BLOOD CELL COUNT 3.2 {Thousand/u} 3.8-10.8 (test code = WHITE BLOOD CELL COUNT) RED BLOOD CELL COUNT (test 4.20 {Million/uL} 3.80-5.10 N code = RED BLOOD CELL COUNT) HEMAGLOBIN; Normal (test 12.4 g/dl 11.7-15.5 N code = 17543-3) HEMATOCRIT; Normal (test 37.0 % 35.0-45.0 N code = 4544-3) MCV; Normal (test code = 88.1 fL 80.0-100.0 N 787-2) MCHC; Normal (test code = 33.5 g/dl 32.0-36.0 N 33511-0) RDW; Normal (test code = 12.4 % 11.0-15.0 N 788-0) PLATELET COUNT; Normal 242 {Thousand/u} 140-400 N (test code = 777-3) MPV; Normal (test code = 10.1 fL 7.5-12.5 N 67121-9) ABSOLUTE NEUTROPHILS (test 1414 {cells/uL} 3634-7040 code = ABSOLUTE NEUTROPHILS) ABSOLUTE LYMPHOCYTES (test 1264 {cells/uL} 850-3900 N code = ABSOLUTE LYMPHOCYTES) ABSOLUTE MONOCYTES (test 384 {cells/uL} 200-950 N code = ABSOLUTE MONOCYTES) ABSOLUTE EOSINOPHILS (test 118 {cells/uL} 15-500 N code = ABSOLUTE EOSINOPHILS) ABSOLUTE BASOPHILS (test 19 {cells/uL} 0-200 N code = ABSOLUTE BASOPHILS) NEUTROPHILS (test code = 44.2 % N NEUTROPHILS) LYMPHOCYTES (test code = 39.5 % N LYMPHOCYTES) MONOCYTES; Normal (test 12.0 % N code = 61856-3) EOSINOPHILS; Normal (test 3.7 % N code = 10001-1) BASOPHILS; Normal (test 0.6 % N code = 53892-5) [facility]] CMP [id number] 09:14:00 Test Item Value Reference Range Interpretation Comments GLUCOSE; Normal 77 mg/dl 65-139 N Non-fasting reference (test code = interval 1547-9) UREA NITROGEN 17 mg/dl 7-25 N (BUN) (test code = UREA NITROGEN (BUN)) CREATININE (test 0.70 mg/dl 0.50-1.05 N For patient s >49 years code = of age, the ref erence CREATININE) limitfor Creati nine is approximately 1 3% higher for peopleidentifie d as -Louisa n. eGFR NON- 96 {ML/MIN/1.7} > OR = 60 N [place] (test code = eGFR NON-) eGFR 111 {ML/MIN/1.7} > OR = 60 N [place] (test code = eGFR ) BUN/CREATININE NOT APPLICABLE 6-22 RATIO (test code = BUN/CREATININE RATIO) SODIUM (test code 141 mmol/L 135-146 N = SODIUM) POTASSIUM (test 4.5 mmol/L 3.5-5.3 N code = POTASSIUM) CHLORIDE (test 106 mmol/L 98-110 N code = CHLORIDE) CARBON DIOXIDE 29 mmol/L 20-32 N (test code = CARBON DIOXIDE) CALCIUM (test 9.4 mg/dl 8.6-10.4 N code = CALCIUM) PROTEIN, TOTAL 7.1 g/dl 6.1-8.1 N (test code = PROTEIN, TOTAL) ALBUMIN (test 4.1 g/dl 3.6-5.1 N code = ALBUMIN) GLOBULIN (test 3.0 {G/DL CALC} 1.9-3.7 N code = GLOBULIN) ALBUMIN/GLOBULIN 1.4 {CALC} 1.0-2.5 N RATIO (test code = ALBUMIN/GLOBULIN RATIO) BILIRUBIN, TOTAL; 0.4 mg/dl 0.2-1.2 N Normal (test code = 06509-6) ALKALINE 43 u/l 33-130 N PHSPHATASE (test code = ALKALINE PHSPHATASE) AST; Normal (test 16 u/l 10-35 N code = 1916-6) ALT; Normal (test 9 u/l 6-29 N code = 1742-6) [facility]] CREATINE KINASE, [id number] 09:14:00 Test Item Value Reference Range Interpretation Comments CREATINE KINASE, TOTAL (test code = 43 u/l 29-143 N CREATINE KINASE, TOTAL) [facility]] CBC (INCLUDES DIFF/PLT)2018-10-07 09:14:00 Test Item Value Reference Range Interpretation Comments WHITE BLOOD CELL COUNT 3.2 {Thousand/u} 3.8-10.8 (test code = WHITE BLOOD CELL COUNT) RED BLOOD CELL COUNT (test 4.04 {Million/uL} 3.80-5.10 N code = RED BLOOD CELL COUNT) HEMAGLOBIN; Normal (test 12.0 g/dl 11.7-15.5 N code = 68625-6) HEMATOCRIT; Normal (test 36.1 % 35.0-45.0 N code = 4544-3) MCV; Normal (test code = 89.4 fL 80.0-100.0 N 787-2) MCHC; Normal (test code = 33.2 g/dl 32.0-36.0 N 54424-9) RDW; Normal (test code = 12.1 % 11.0-15.0 N 788-0) PLATELET COUNT; Normal 238 {Thousand/u} 140-400 N (test code = 777-3) MPV; Normal (test code = 9.8 fL 7.5-12.5 N 91629-0) ABSOLUTE NEUTROPHILS (test 1619 {cells/uL} 7142-5339 N code = ABSOLUTE NEUTROPHILS) ABSOLUTE LYMPHOCYTES (test 1194 {cells/uL} 850-3900 N code = ABSOLUTE LYMPHOCYTES) ABSOLUTE MONOCYTES (test 298 {cells/uL} 200-950 N code = ABSOLUTE MONOCYTES) ABSOLUTE EOSINOPHILS (test 61 {cells/uL} 15-500 N code = ABSOLUTE EOSINOPHILS) ABSOLUTE BASOPHILS (test 29 {cells/uL} 0-200 N code = ABSOLUTE BASOPHILS) NEUTROPHILS (test code = 50.6 % N NEUTROPHILS) LYMPHOCYTES (test code = 37.3 % N LYMPHOCYTES) MONOCYTES; Normal (test 9.3 % N code = 07611-7) EOSINOPHILS; Normal (test 1.9 % N code = 65223-4) BASOPHILS; Normal (test 0.9 % N code = 31478-9) [facility]] PROBNP, N [id number] 09:14:00 Test Item Value Reference Range Interpretation Comments PROBNP, N TERMINAL 106 pg/ml 50-75 yea rs: < 300 pg/mL (test code = PROBNP, Normal, heart failure N TERMINAL) unlikely> or = 900 pg/mL High probabilit y of heart failure F or patients with C HD, the optimal risk ca tegorycut points for inci dent HF or CVD (& lt;253 pg/mLmen, <372 pg/mL women) are base d on [place] et al.,J ACC 2007; 50:205 For penny ents with existing HF, th e optimal riskcategory cu t point for HF progress ion (<300 pg/mL)is based on Rhoda et al., Clin Bi ochem 2010; 43:1405 H F diagnosis cut p oints in dyspneic patien ts arebased on Sami barragan et al., Eur Heart J 2006; 27:330For <50 y ears: <300 pg/mL HF u nlikely, > or = 450 pg/m Lhigh probability of HF;For 50-75 years: <3 00 pg/mL HF unlikely, > or = 900pg/mL high probability of HF;For >75 years: <300 pg/mL HF unlikely, > or = 1800pg/mL high probability of HF [facility]] VITAMIN D, 25-HYDROXY, [id number] 09:14:00 Test Item Value Reference Range Interpretation Comments VITAMIN 43 ng/ml 30-100 N Vitamin D Statu s 25-OH D,25-OH,TOTAL,IA Vitamin D: Deficiency: (test code = VITAMIN <20 ng/ mLInsufficiency: D,25-OH,TOTAL,IA) 20 - 29 ng /mLOptimal: > or = 30 ng/mL F or 25-OH Vitamin D testi ng on patients on D2-supplementat ion and patients for wh om quantitation of D2 and D3 fractions is required, the QuestAssureD(TM )25-OH VIT D, (D2,D3), LC/MS/MS is recommended: order code 73912 (pat ients >2yrs). For mor e information on this test, go to:http://educa tion.ques tdiagnostics.co m/faq/FAQ 163(This link i s being provided for informational/e ducationa l purposes only .) [facility]] CMP [id number] 10:02:00 Test Item Value Reference Range Interpretation Comments GLUCOSE; Normal 86 mg/dl 65-139 N Non-fasting reference (test code = interval 1547-9) UREA NITROGEN 22 mg/dl 7-25 N (BUN) (test code = UREA NITROGEN (BUN)) CREATININE (test 0.70 mg/dl 0.50-1.05 N For patient s >49 years code = of age, the ref erence CREATININE) limitfor Creati nine is approximately 1 3% higher for peopleidentifie d as -Louisa n. eGFR NON- 96 {ML/MIN/1.7} > OR = 60 N [place] (test code = eGFR NON-) eGFR 111 {ML/MIN/1.7} > OR = 60 N [place] (test code = eGFR ) BUN/CREATININE NOT APPLICABLE 6-22 RATIO (test code = BUN/CREATININE RATIO) SODIUM (test code 141 mmol/L 135-146 N = SODIUM) POTASSIUM (test 4.7 mmol/L 3.5-5.3 N code = POTASSIUM) CHLORIDE (test 106 mmol/L 98-110 N code = CHLORIDE) CARBON DIOXIDE 31 mmol/L 20-31 N (test code = CARBON DIOXIDE) CALCIUM (test 9.4 mg/dl 8.6-10.4 N code = CALCIUM) PROTEIN, TOTAL 7.1 g/dl 6.1-8.1 N (test code = PROTEIN, TOTAL) ALBUMIN (test 4.0 g/dl 3.6-5.1 N code = ALBUMIN) GLOBULIN (test 3.1 {G/DL CALC} 1.9-3.7 N code = GLOBULIN) ALBUMIN/GLOBULIN 1.3 {CALC} 1.0-2.5 N RATIO (test code = ALBUMIN/GLOBULIN RATIO) BILIRUBIN, TOTAL; 0.4 mg/dl 0.2-1.2 N Normal (test code = 22308-1) ALKALINE 42 u/l 33-130 N PHSPHATASE (test code = ALKALINE PHSPHATASE) AST; Normal (test 18 u/l 10-35 N code = 1916-6) ALT; Normal (test 12 u/l 6-29 N code = 1742-6) [facility]] CBC (INCLUDES DIFF/PLT)2018-04-03 10:02:00 Test Item Value Reference Range Interpretation Comments WHITE BLOOD CELL COUNT 4.4 {Thousand/u} 3.8-10.8 N (test code = WHITE BLOOD CELL COUNT) RED BLOOD CELL COUNT (test 4.24 {Million/uL} 3.80-5.10 N code = RED BLOOD CELL COUNT) HEMOGLOBIN; Normal (test 12.3 g/dl 11.7-15.5 N code = 07924-6) HEMATOCRIT; Normal (test 37.8 % 35.0-45.0 N code = 4544-3) MCV; Normal (test code = 89.2 fL 80.0-100.0 N 787-2) MCHC; Normal (test code = 32.5 g/dl 32.0-36.0 N 58616-5) RDW; Normal (test code = 12.4 % 11.0-15.0 N 788-0) PLATELET COUNT; Normal 260 {Thousand/u} 140-400 N (test code = 777-3) MPV; Normal (test code = 10.2 fL 7.5-12.5 N 34220-4) ABSOLUTE NEUTROPHILS (test 2539 {cells/uL} 8625-8397 N code = ABSOLUTE NEUTROPHILS) ABSOLUTE LYMPHOCYTES (test 1439 {cells/uL} 850-3900 N code = ABSOLUTE LYMPHOCYTES) ABSOLUTE MONOCYTES (test 361 {cells/uL} 200-950 N code = ABSOLUTE MONOCYTES) ABSOLUTE EOSINOPHILS (test 40 {cells/uL} 15-500 N code = ABSOLUTE EOSINOPHILS) ABSOLUTE BASOPHILS (test 22 {cells/uL} 0-200 N code = ABSOLUTE BASOPHILS) NEUTROPHILS (test code = 57.7 % N NEUTROPHILS) LYMPHOCYTES (test code = 32.7 % N LYMPHOCYTES) MONOCYTES; Normal (test 8.2 % N code = 54152-7) EOSINOPHILS; Normal (test 0.9 % N code = 89722-3) BASOPHILS; Normal (test 0.5 % N code = 68307-2) [facility]] CBC (INCLUDES DIFF/PLT)2018-03-04 10:47:01 Test Item Value Reference Range Interpretation Comments WBC; Below Low Threshold (test 3.1 {K/CMM} 3.7-10.4 code = 6690-2) RBC; Below Low Threshold (test 3.99 {M/CMM} 4.20-5.40 code = 789-8) Hgb (test code = 718-7) 12.3 g/dl 12.0-16.0 Hct (test code = 06866-5) 36.4 % 36.0-48.0 MCV (test code = 787-2) 91.3 fL 80.0-98.0 MCH (test code = 785-6) 30.9 pg 27.0-31.0 MCHC (test code = 786-4) 33.8 g/dl 32.0-36.0 RDW (test code = 788-0) 13.5 % 11.5-14.5 Platelet (test code = 81269-0) 215 {K/CMM} 133-450 Mean Platelet Volume (test code 8.5 fL 7.4-10.4 = 28325-2) [facility]] [id number] 10:47:01 Test Item Value Reference Range Interpretation Comments Segmented Neutrophils (test code 52.0 % 45.0-75.0 = 42629-7) Monocytes (test code = 13747-1) 8.5 % 2.0-12.0 Lymphocytes (test code = 11626-3) 37.7 % 20.0-40.0 Eosinophils (test code = 84098-3) 1.0 % 0.0-4.0 Basophils (test code = 706-2) 0.8 % 0.0-1.0 Segs-Bands # (test code = 1.6 {K/CMM} 1.5-8.1 27039-8) Lymphocytes # (test code = 1.2 {K/CMM} 1.0-5.5 74182-5) Monocytes # (test code = 68561-7) 0.3 {K/CMM} 0.0-0.8 [facility]] CMP [id number] 10:47:01 Test Item Value Reference Range Interpretation Comments Sodium Level 142 {mEq/l} 135-145 (test code = 2951-2) Potassium Level 4.1 {mEq/l} 3.5-5.1 (test code = 2823-3) Chloride Level; 111 {mEq/l} 95-109 Above High Threshold (test code = 5-0) Carbon Dioxide; 23 {mEq/l} 24-32 Below Low Threshold (test code = 2027-9) AGAP (test code = 12.1 {mEq/l} 10.0-20.0 57175-1) Glucose Lvl (test 76 mg/dl 70-99 Adult refe rence range code = 2345-7) values reflec t the clinical guidel inesof the [place] [employer]. Creatinine Lvl 0.70 mg/dl 0.50-1.40 (test code = 2160-0) Blood Urea 25 mg/dl 7-22 Nitrogen; Above High Threshold (test code = 3094-0) BUN/Creatinine 36 6-25 Ratio; Above High Threshold (test code = 3097-3) Total Protein 7.4 g/dl 6.4-8.4 (test code = 2885-2) Albumin Lvl (test 3.7 g/dl 3.5-5.0 code = 1751-7) Globulin (test 3.7 g/dl 2.7-4.2 code = 56515-7) A/G Ratio (test 1.0 0.7-1.6 code = 1759-0) Calcium Level 9.5 mg/dl 8.5-10.5 Total (test code = 43582-1) ALT (test code = 20 u/l 0-65 1743-4) AST (test code = 23 u/l 0-37 36735-6) Bili Total (test 0.4 mg/dl 0.2-1.3 code = 1974-) Alk Phos (test 41 u/l 39-136 code = 1783-0) eGFR (test code = 96 The eGFR i s calculated 56265-8) {ML/MIN/1.7} using the CKD-E PI formula. In mos t young, healthyindividu als the eGFR will be >9 0 mL/min/1.73m2. The eGFR declines with a ge. AneGFR of 60-89 may be normal in some population s, particularly th e elderly, forwhom the CKD -EPI formula has not been extensively radha idated. Use of the eGFR isnot recommended in the following populations:Ind ividuals with unstable c reatinine concentrations, including patient s and those with seri ous co-morbid conditions.Penny ents with extremes in mus edmund mass or diet.The ori a above are obtained fr om the National Kidney Disease Education Progr am(NKDEP) which allie zelaya recommends that when the eGFR is used in patientswith ex tremes of body mass index for purposes of bela g dosing, the eGFR should be multiplied by t he estimated BMI. [facility]] VITAMIN D, 25-HYDROXY, [id number]/MS/[id number] 10:47:01 Test Item Value Reference Range Interpretation Comments Vitamin D, 25-OH, 29.5 ng/ml 30.0-100.0 Reference range is based Total (test code on recommen dations in the = Vitamin D, EndocrineSociet y Clinical 25-OH, Total) Practice Guide line (J Clin Endocrinol Yutar8922;96:19 11-1930) [facility]] CMP [id number] 12:17:00 Test Item Value Reference Range Interpretation Comments GLUCOSE; Normal 76 mg/dl 65-99 N Fasting refe rence (test code = interval 1547-9) UREA NITROGEN 16 mg/dl 7-25 N (BUN) (test code = UREA NITROGEN (BUN)) CREATININE (test 0.62 mg/dl 0.50-1.05 N For patient s >49 years code = of age, the ref erence CREATININE) limitfor Creati nine is approximately 1 3% higher for peopleidentifie d as -Louisa n. eGFR NON- 101 {ML/MIN/1.7} > OR = 60 N [place] (test code = eGFR NON-) eGFR 117 {ML/MIN/1.7} > OR = 60 N [place] (test code = eGFR ) BUN/CREATININE NOT APPLICABLE 6-22 RATIO (test code = BUN/CREATININE RATIO) SODIUM (test code 139 mmol/L 135-146 N = SODIUM) POTASSIUM (test 4.2 mmol/L 3.5-5.3 N code = POTASSIUM) CHLORIDE (test 103 mmol/L 98-110 N code = CHLORIDE) CARBON DIOXIDE 28 mmol/L 20-31 N (test code = CARBON DIOXIDE) CALCIUM (test 9.7 mg/dl 8.6-10.4 N code = CALCIUM) PROTEIN, TOTAL 7.6 g/dl 6.1-8.1 N (test code = PROTEIN, TOTAL) ALBUMIN (test 4.4 g/dl 3.6-5.1 N code = ALBUMIN) GLOBULIN (test 3.2 {G/DL CALC} 1.9-3.7 N code = GLOBULIN) ALBUMIN/GLOBULIN 1.4 {CALC} 1.0-2.5 N RATIO (test code = ALBUMIN/GLOBULIN RATIO) BILIRUBIN, TOTAL; 0.4 mg/dl 0.2-1.2 N Normal (test code = 96800-3) ALKALINE 55 u/l 33-130 N PHOSPHATE (test code = ALKALINE PHOSPHATE) AST; Normal (test 18 u/l 10-35 N code = 1916-6) ALT; Normal (test 12 u/l 6-29 N code = 1742-6) [facility]] CBC (INCLUDES DIFF/PLT)2017-11-27 12:17:00 Test Item Value Reference Range Interpretation Comments WHITE BLOOD CELL COUNT 6.0 {Thousand/u} 3.8-10.8 N (test code = WHITE BLOOD CELL COUNT) RED BLOOD CELL COUNT (test 4.36 {Million/uL} 3.80-5.10 N code = RED BLOOD CELL COUNT) HEMOGLOBIN; Normal (test 12.6 g/dl 11.7-15.5 N code = 77502-0) HEMATOCRIT; Normal (test 38.6 % 35.0-45.0 N code = 4544-3) MCV; Normal (test code = 88.5 fL 80.0-100.0 N 787-2) MCHC; Normal (test code = 32.6 g/dl 32.0-36.0 N 34907-7) RDW; Normal (test code = 12.5 % 11.0-15.0 N 788-0) PLATELET COUNT; Normal 268 {Thousand/u} 140-400 N (test code = 777-3) MPV; Normal (test code = 9.9 fL 7.5-12.5 N 16692-7) ABSOLUTE NEUTROPHILS (test 4092 {cells/uL} 6808-5304 N code = ABSOLUTE NEUTROPHILS) ABSOLUTE LYMPHOCYTES (test 1296 {cells/uL} 850-3900 N code = ABSOLUTE LYMPHOCYTES) ABSOLUTE MONOCYTES (test 552 {cells/uL} 200-950 N code = ABSOLUTE MONOCYTES) ABSOLUTE EOSINOPHILS (test 30 {cells/uL} 15-500 N code = ABSOLUTE EOSINOPHILS) ABSOLUTE BASOPHILS (test 30 {cells/uL} 0-200 N code = ABSOLUTE BASOPHILS) NEUTROPHILS (test code = 68.2 % N NEUTROPHILS) LYMPHOCYTES (test code = 21.6 % N LYMPHOCYTES) MONOCYTES; Normal (test 9.2 % N code = 48122-5) EOSINOPHILS; Normal (test 0.5 % N code = 24861-7) BASOPHILS; Normal (test 0.5 % N code = 26630-0) [facility]
[2022-09-25] MEDS ORDERED: HYDROCODONE/APAP 10/325 TAB ONE (18:40)
--- NOTE | 2022-09-25 19:11 | RAD REPORT ---
EXAM DESCRIPTION: RAD - Facial Bones <3 Views - 09/25/2022 7:00 pm CLINICAL HISTORY: FACIAL PAIN COMPARISON: No comparisons FINDINGS: There is no evidence of a facial fracture. Paranasal sinuses and mastoids are clear.
--- NOTE | 2022-09-25 19:14 | RAD REPORT ---
EXAM DESCRIPTION: RAD - Ribs Left - 09/25/2022 7:00 pm CLINICAL HISTORY: left lateral lower ribs COMPARISON: Chest Single View dated 09/21/2021 FINDINGS: Mild fracture of the left lateral fifth rib is noted. No left-sided pneumothorax. Opacitie s in left base could represent a infiltrate or atelectasis. IMPRESSION: Mildly displaced fracture left lateral fifth rib.
--- NOTE | 2022-09-25 19:55 | EDPHYS ---
Physician Documentation [facility] Name: Jami Carlisle Age: 62 yrs Sex: Female : 1960 Arrival Date: 09/25/2022 Time: 18:03 Bed 17 Private MD: ED Physician Kieran Soto HPI: 09/25 20:36 This 62 yrs old Female presents to ER via Wheelchair with complaints of Fall Injury, kb Jaw Pain, Rib Pain. 20:36 Details of fall: The patient fell from an upright position, while walking. Onset: The kb symptoms/episode began/occurred today. Associated injuries: The patient sustained injury to the head, contusion, injury to the chest, specifically the left lateral posterior chest and left lateral anterior chest, pain with breathing, pain with movement, tenderness. Severity of symptoms: At their worst the symptoms were moderate, in the emergency department the symptoms are unchanged. The patient has not experienced similar symptoms in the past. The patient has not recently seen a physician. Pt reports she tripped on street and fell onto curb. Reports hitting left ribs on curb and left cheek on sidewalk. Denies loc. . Historical: - PMHx: 18:13 Hypertension; interstitial lung disease; Sceroderma; iw - Immunization history:: Adult Immunizations up to date. - Social history:: Smoking status: Patient denies any tobacco usage or history of. ROS: 20:35 Constitutional: Negative for fever, chills, and weight loss. kb 20:35 Cardiovascular: Positive for chest pain, with movement, of the left lateral anterior chest and left lateral posterior chest. 20:35 Skin: Positive for erythema, of the left cheek. 20:35 All other systems are negative. Exam: 20:35 Constitutional: This is a well developed, well nourished patient who is awake, alert, kb and in no acute distress. ENT: Moist Mucous membranes Cardiovascular: Regular rate and rhythm with a normal S1 and S2. No gallops, murmurs, or rubs. No pulse deficits. Respiratory: Respirations even and unlabored. No increased work of breathing. Talking in full sentences Abdomen/GI: Soft, non-tender. No distention Skin: Warm, dry with normal turgor. Normal color. MS/ Extremity: Pulses equal, no cyanosis. Neurovascular intact. Full, normal range of motion. Neuro: Awake and alert, GCS 15, oriented to person, place, time, and situation. Moves all extremities. Normal gait. Psych: Awake, alert, with orientation to person, place and time. Behavior, mood, and affect are within normal limits. 20:35 Head/face: Noted is no obvious of injury or deformity except contusion, that is superficial, of the left cheek. 20:35 Chest/axilla: Inspection: normal, Palpation: tenderness, that is moderate, of the left lateral posterior chest and left lateral anterior chest, that totally reproduces the patient's complaints. Vital Signs: 18:10 BP 133 / 73; Resp 18; Temp 98.7; Weight 49.9 kg; Height 5 ft. 3 in. (160.02 cm); Pain iw 10/10; 19:26 BP 109 / 73; Pulse 81; Resp 16 S; Pulse Ox 100% on R/A; as6 18:10 Body Mass Index 19.49 (49.90 kg, 160.02 cm) iw MDM: 18:17 Patient medically screened. kb 20:35 Data reviewed: vital signs, nurses notes. Data interpreted: Pulse oximetry: on room air kb is 100 %. Interpretation: normal. Counseling: I had a detailed discussion with the patient and/or guardian regarding: the historical points, exam findings, and any diagnostic results supporting the discharge/admit diagnosis, radiology results, the need for outpatient follow up, a family practitioner, to return to the emergency department if symptoms worsen or persist or if there are any questions or concerns that arise at home. 09/25 18:32 Order name: Facial Bones <3 Views XRAY; Complete Time: 19:18 kb 09/25 18:32 Order name: Ribs Left XRAY; Complete Time: 19:18 kb Administered Medications: 18:40 Drug: [place] (HYDROcodone-acetaminophen) 10 mg-325 mg 1 tabs Route: PO; bp 20:03 Follow up: Response: No adverse reaction as6 Disposition Summary: 09/25/22 19:55 Discharge Ordered Location: Home kb Condition: Stable kb Diagnosis - Fall (on)(from) sidewalk curb kb - Fracture of one rib, left side kb - Contusion of face kb - Unspecified injury of head, initial encounter kb Followup: kb - With: Emergency Department - When: As needed - Reason: Worsening of condition Followup: kb - With: Private Physician - When: 2 - 3 days - Reason: Recheck today's complaints, Continuance of care, Re-evaluation by your physician Discharge Instructions: - Discharge Summary Sheet kb - Head Injury, Adult, [id number] kb - Rib Fracture, Task-gh-Cayl kb - Facial or Scalp Contusion, [id number]-Gywu kb Forms: - Medication Reconciliation Form kb - Thank You Letter kb - Antibiotic Education kb - Prescription Opioid Use kb Prescriptions: - Ibuprofen 600 mg Oral Tablet - take 1 tablet by ORAL route every 6 hours As needed take with food; 30 tablet; kb Refills: 0, Product Selection Permitted - Tramadol 50 mg Oral Tablet - take 1 tablet by ORAL route every 8 hours as needed; 12 tablet; Refills: 0, kb Product Selection Permitted Addendum: 09/27/2022 07:36 Co-signature as Attending Physician, Kieran Soto MD. r n Signatures: Dispatcher [employer] Migdalia Gamboa, EDUCATIONAL THERAPIST-C EDUCATIONAL THERAPIST-Ckb Winnie Mclain, RN Kieran Arita MD MD rn Peltier, Brian, RN RN bp Slawson, Ashby RN as6
--- NOTE | 2022-09-25 19:55 | ER ---
Nurse's Notes [facility] Name: Jami Carlisle Age: 62 yrs Sex: Female : 1960 Arrival Date: 09/25/2022 Time: 18:03 Bed 17 Private MD: Diagnosis: Fall (on)(from) sidewalk curb;Fracture of one rib, left side;Unspecified injury of head, initial encounter Presentation: 09/25 18:10 Chief complaint: Patient states: fell on concrete and hit left jaw, left ribs on curb - iw NO LOC, NO BLOOD THINNERS. Coronavirus screen: Vaccine status: Patient reports receiving the 2nd dose of the covid vaccine. Client denies travel out of the [place] in the last 14 days. Ebola Screen: Patient negative for fever greater than or equal to 101.5 degrees Fahrenheit, and additional compatible Ebola Virus Disease symptoms Patient denies exposure to infectious person. Patient denies travel to an Ebola-affected area in the 21 days before illness onset. Initial Sepsis Screen: Does the patient meet any 2 criteria? No. Patient's initial sepsis screen is negative. Does the patient have a suspected source of infection? No. Patient's initial sepsis screen is negative. Risk Assessment: Do you want to hurt yourself or someone else? Patient reports no desire to harm self or others. 18:10 Method Of Arrival: Wheelchair iw 18:10 Acuity: SHAE 2 iw 20:03 Onset of symptoms was September 25, 2022. as6 Triage Assessment: 18:13 General: Appears in no apparent distress. uncomfortable, slender, Behavior is calm, iw cooperative, appropriate for age. Historical: - PMHx: 18:13 Hypertension; interstitial lung disease; Sceroderma; iw - Immunization history:: Adult Immunizations up to date. - Social history:: Smoking status: Patient denies any tobacco usage or history of. Screenin:18 Abuse screen: Denies threats or abuse. Denies injuries from another. Nutritional bp screening: No deficits noted. Tuberculosis screening: No symptoms or risk factors identified. Fall Risk Fall in past 12 months (25 points). No secondary diagnosis (0 pts). No IV (0 pts). Ambulatory Aid- None/Bed Rest/Nurse Assist (0 pts). Gait- Normal/Bed Rest/Wheelchair (0 pts) Mental Status- Oriented to own ability (0 pts). Total [place] Fall Scale indicates Low Risk Score (25-44 pts). Fall prevention measures have been instituted. Side Rails Up X 2 Placed close to Nursing Station Frequent Obs/Assesments occuring Family Present and informed to notify staff if they need to leave bedside As available Patient and Family Educated on Fall Prevention Program and strategies. Assessment: 18:18 General: SEE TRIAGE NOTE. bp 18:40 Reassessment: PT TO RAD. bp 18:55 Reassessment: PT RETURNED FROM RAD. bp 19:26 General: Appears uncomfortable. Pain: Complains of pain in left lateral posterior chest as6 and left lateral anterior chest. Respiratory: Respiratory effort is even, unlabored. Vital Signs: 18:10 BP 133 / 73; Resp 18; Temp 98.7; Weight 49.9 kg; Height 5 ft. 3 in. (160.02 cm); Pain iw 10/10; 19:26 BP 109 / 73; Pulse 81; Resp 16 S; Pulse Ox 100% on R/A; as6 18:10 Body Mass Index 19.49 (49.90 kg, 160.02 cm) iw ED Course: 18:03 Patient arrived in ED. as 18:13 Triage completed. iw 18:13 Arm band placed on right wrist. iw 18:16 Migdalia Medeiros FNP-C is [facility]. kb 18:16 Kieran Soto MD is Attending Physician. kb 18:17 Julian Jarquin, RN is Primary Nurse. bp 18:19 Patient has correct armband on for positive identification. Bed in low position. Call bp light in reach. Side rails up X2. Adult w/ patient. 19:02 Facial Bones <3 Views XRAY In Process Unspecified. EDMS 19:02 Ribs Left XRAY In Process Unspecified. EDMS 20:03 No provider procedures requiring assistance completed. Patient did not have IV access as6 during this emergency room visit. Administered Medications: 18:40 Drug: [place] (HYDROcodone-acetaminophen) 10 mg-325 mg 1 tabs Route: PO; bp 20:03 Follow up: Response: No adverse reaction as6 Medication: 18:18 VIS not applicable for this client. bp Outcome: 19:55 Discharge ordered by . kb 20:03 Discharged to home via wheelchair, with family. as6 20:03 Condition: stable 20:03 Discharge instructions given to patient, family, Instructed on discharge instructions, follow up and referral plans. medication usage, Demonstrated understanding of instructions, follow-up care, medications, Prescriptions given X 2. 20:03 Patient left the ED. as6 Signatures: Dispatcher [employer] EDMS Migdalia Medeiros, CORINNA-Kennedi WEINSTEIN-Brianne Coates as Winnie Mclain RN RN iw Peltier, Brian, RN RN bp Slawson, Ashby, RN RN as6
== END 2022-09-25 20:03 | disposition home or self-care (01) ==
LOC: ER 18:01
DX: S22.32XA Fracture of one rib, left side, initial encounter for closed fracture (principal); S00.83XA Contusion of other part of head, initial encounter; W01.198A Fall on same level from slipping, tripping and stumbling with subsequent striking against other object, initial encounter; Y93.01 Activity, walking, marching and hiking; Y92.480 Sidewalk as the place of occurrence of the external cause; I10 Essential (primary) hypertension
CPT/HCPCS: 70140; 99283